=== PATIENT | female | born 1960 | race Caucasian/White ===

== ENCOUNTER 2017-09-20 19:33 | Inpatient (IN) | payer OTHER ==
[2017-09-20] MEDS ORDERED: ALBUTEROL SO4 2.5/IPRATROPIUM 0.5 INH SOL 3 ML VIAL.NEB. NEB ONE (19:43)
--- NOTE | 2017-09-20 19:45 | PDOC ---
Rapid Medical Evaluation Time Seen by Provider: 09/20/17 19:41 Medical Evaluation: Allergies Allergy/AdvReac Type Severity Reaction Status Date / Time acetaminophen [From Percocet] Allergy Severe Difficulty Verified 08/07/12 17:35 Breathing oxycodone HCl [From Percocet] Allergy Severe Difficulty Verified 08/07/12 17:35 Breathing aspirin Allergy Verified 08/07/12 17:35 ibuprofen Allergy Verified 08/07/12 17:35 Penicillins Allergy Verified 08/07/12 17:35 Sulfa (Sulfonamide Allergy Verified 08/07/12 17:35 Antibiotics) [Sulfa(Sulfonamide Antibiotics)] 09/20/17 19:42 I have performed a brief in person evaluation of this patient. 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 on day 5 of levaquin and finishing the medrol dose pack. Pt admits to smoking marijuana . Pertinent PE findings: coughing , wheezing expiratory I have ordered the following: duoneb, CXR The patient will proceed to the ER for further evaluation. 09/20/17 19:45
[2017-09-20 20:13] LABS: HEMATOCRIT 40.5 % (32.4-45.2); HEMOGLOBIN 13.5 GM/dL (10.7-15.3); MCH 32.1 pg (25.7-33.7); MCHC 33.4 g/dl (32.0-36.0); MEAN CELL VOLUME 96.2 fl (80-96); MEAN PLT VOLUME 8.6 fl (7.5-11.1); PLATELET COUNT 262 K/MM3 (134-434); RBC 4.22 M/mm3 (3.60-5.2); RDW 14.3 % (11.6-15.6); WHITE BLOOD COUNT 16.4 K/mm3 (4.0-10.0)
[2017-09-20 20:43] LABS: ANION GAP 8 (8-16); BILIRUBIN,TOTAL 0.3 mg/dL (0.2-1.0); BLOOD UREA NITROGEN 18 mg/dL (7-18); CALCIUM 9.3 mg/dL (8.5-10.1); CHLORIDE 101 mmol/L (98-107); CO2 29 mmol/L (21-32); GLUCOSE,RANDOM 135 mg/dL (74-106); POTASSIUM 4.4 mmol/L (3.5-5.1); SGOT/AST 19 U/L (15-37); SGPT/ALT 26 U/L (12-78); SODIUM 138 mmol/L (136-145)
[2017-09-20 20:47] LABS: ALK PHOS 105 U/L (45-117); N-TERMINAL BNP 84.61 pg/ml (5-125); TOT PROT 8.1 g/dl (6.4-8.2)
[2017-09-20 23:28] LABS: PLATELET ESTIMATE ADEQUATE
--- NOTE | 2017-09-21 00:55 | PDOC ---
History of Present Illness - General History Source: Patient Exam Limitations: No Limitations - History of Present Illness Initial Comments: 09/21/17 00:59 The patient is a 57 year old female with a significant PMH of asthma, COPD, diabetes, bipolar disorder, and multiple episodes of pneumonia who presents to the emergency department with persistent cough and shortness of breath since which has worsened over the past week. She reports receiving antibiotics , breathing treatments, and steroids from both her PCP and at [facility] over the past month to minimal relief. She patient reports being on day 5 of her Levaquin course and finishing her recently prescribed Medrol dose pack. The patient denies chest pain, headache and dizziness. Denies fever, chills, nausea, vomit, diarrhea and constipation. Denies dysuria, frequency, urgency and hematuria. Allergies: Acetaminophen, Oxycodone HCl, Aspirin, Ibuprofen, Penicillins, Sulfonamides. Past surgical history: None reported. Social history: Marijuana use. Former cigarette smoker. No reported alcohol use. PCP: Dr. Abundio Stuart <John Lewis - Last Filed: 09/21/17 01:01> - General History Source: Patient <MaoGarcia corrigan - Last Filed: 09/25/17 19:24> - General Chief Complaint: Shortness of Breath Stated Complaint: RESPIRATORY Time Seen by Provider: 09/20/17 19:41 Past History <John Lewis - Last Filed: 09/21/17 01:01> - Past Medical History Asthma: Yes COPD: No CHF: No DVT: No Diabetes: Yes (even off steroids) Thyroid Disease: Yes - Suicide/Smoking/Psychosocial Hx Smoking Status: Yes Smoking History: Former smoker Have you smoked in the past 12 months: Yes Number of Cigarettes Smoked Daily: 0 Information on smoking cessation initiated: No 'Breaking Loose' booklet given: 06/18/12 Hx Alcohol Use: No Drug/Substance Use Hx: Yes Substance Use Type: Marijuana Hx Substance Use Treatment: No <Garcia Lambert - Last Filed: 09/25/17 19:24> - Past Medical History Allergies/Adverse Reactions: Allergies Allergy/AdvReac Type Severity Reaction Status Date / Time acetaminophen [From Percocet] Allergy Severe Difficulty Verified 09/20/17 19:48 Breathing oxycodone HCl [From Percocet] Allergy Severe Difficulty Verified 09/20/17 19:48 Breathing aspirin Allergy Verified 09/20/17 19:48 ibuprofen Allergy Verified 09/20/17 19:48 Penicillins Allergy Verified 09/20/17 19:48 Sulfa (Sulfonamide Allergy Verified 09/20/17 19:48 Antibiotics) [Sulfa(Sulfonamide Antibiotics)] Home Medications: Ambulatory Orders Levothyroxine [Synthroid -] 125 mcg PO DAILY #0 tablet 07/12/12 Alprazolam 0.5 mg PO BID PRN 09/21/17 Atorvastatin Calcium [Lipitor] 10 mg PO HS 09/21/17 Lamotrigine [Lamictal -] 200 mg PO BID 09/21/17 Quetiapine Fumarate [Seroquel -] 450 mg PO HS 09/21/17 Valsartan 80 mg PO DAILY 09/21/17 Diphenhydramine 50 mg PO HS 09/22/17 Metformin HCl 1,000 mg PO BID 09/22/17 Review of Systems - Review of Systems Able to Perform ROS?: Yes Comments:: 09/21/17 00:59 CONSTITUTIONAL: Absent: fever, chills, diaphoresis, generalized weakness, malaise, loss of appetite HEENT: Absent: rhinorrhea, nasal congestion, throat pain, throat swelling, difficulty swallowing, mouth swelling, ear pain, eye pain, visual Changes CARDIOVASCULAR: Absent: chest pain, syncope, palpitations, irregular heart rate, lightheadedness , peripheral edema RESPIRATORY: (+) Cough. (+) Shortness of breath. Absent: dyspnea with exertion, orthopnea, wheezing, stridor, hemoptysis GASTROINTESTINAL: Absent: abdominal pain, abdominal distension, nausea, vomiting, diarrhea, constipation, melena, hematochezia GENITOURINARY: Absent: dysuria, frequency, urgency, hesitancy, hematuria, flank pain, genital pain MUSCULOSKELETAL: Absent: myalgia, arthralgia, joint swelling SKIN: Absent: rash, itching, pallor HEMATOLOGIC/IMMUNOLOGIC: Absent: easy bleeding, easy bruising, lymphadenopathy, frequent infections ENDOCRINE: Absent: unexplained weight gain, unexplained weight loss, heat intolerance, cold intolerance NEUROLOGIC: Absent: headache, focal weakness or paresthesias, dizziness, unsteady gait, seizure, mental status changes, bladder or bowel incontinence PSYCHIATRIC: Absent: anxiety, depression, suicidal or homicidal ideation, hallucinations. <John Lewis - Last Filed: 09/21/17 01:01> *Physical Exam - Vital Signs Last Vital Signs Temp Pulse Resp BP Pulse Ox 98.3 F 102 H 28 H 139/89 98 09/20/17 19:43 09/20/17 19:43 09/20/17 19:43 09/20/17 19:43 09/20/17 19:43 - Physical Exam Comments: 09/21/17 00:59 GENERAL: Well developed, well nourished. Awake and alert. No acute distress. HEENT: Normocephalic, atraumatic. PERRLA, EOMI. No conjunctival pallor. Sclera are non- icteric. Moist mucous membranes. Oropharynx is clear. NECK: Supple. Full ROM. No JVD. Carotid pulses 2+ and symmetric, without bruits. No thyromegaly. No lymphadenopathy. CARDIOVASCULAR: Regular rate and rhythm. No murmurs, rubs, or gallops. Distal pulses are 2+ and symmetric. PULMONARY: (+) Coarse bilateral wheezing. No evidence of respiratory distress. No rales or rhonchi. ABDOMINAL: Soft. Non-tender. Non-distended. No rebound or guarding. No organomegaly. Normoactive bowel sounds. MUSCULOSKELETAL Normal range of motion at all joints. No bony deformities or tenderness. No CVA tenderness. EXTREMITIES: No cyanosis. No clubbing. No edema. No calf tenderness. SKIN: Warm and dry. Normal capillary refill. No rashes. No jaundice. NEUROLOGICAL: Alert, awake, appropriate. Cranial nerves 2-12 intact. No deficits to light touch and temperature in face, upper extremities and lower extremities. No motor deficits in the in face, upper extremities and lower extremities. Normoreflexic in the upper and lower extremities. Normal speech. Toes are downgoing bilaterally. Gait is normal without ataxia. PSYCHIATRIC: Cooperative. Good eye contact. Appropriate mood and affect. <John Lewis - Last Filed: 09/21/17 01:01> - Vital Signs Last Vital Signs Temp Pulse Resp BP Pulse Ox 98.3 F 102 H 28 H 139/89 98 09/20/17 19:43 09/20/17 19:43 09/20/17 19:43 09/20/17 19:43 09/20/17 19:43 <Garcia Lambert - Last Filed: 09/25/17 19:24> ED Treatment Course - LABORATORY CBC & Chemistry Diagram: 09/20/17 20:00 09/20/17 20:00 - ADDITIONAL ORDERS Additional order review: Laboratory Results 09/20/17 09/20/17 20:00 20:00 Sodium 138 Potassium 4.4 Chloride 101 Carbon Dioxide 29 Anion Gap 8 BUN 18 Creatinine 1.0 Creat Clearance w eGFR 56.75 Random Glucose 135 H Calcium 9.3 Total Bilirubin 0.3 AST 19 ALT 26 Alkaline Phosphatase 105 Creatine Kinase 741 H Creatine Kinase Index 0.2 CK-MB (CK-2) 2.157 Troponin I < 0.02 B-Natriuretic Peptide 84.61 Total Protein 8.1 Albumin 4.0 09/20/17 20:00 RBC 4.22 MCV 96.2 H MCHC 33.4 RDW 14.3 MPV 8.6 Neutrophils % No Result Required. Lymphocytes % No Result Required. - Medications Given in the ED: ED Medications Discontinued Medications Generic Name Dose Route Start Last Admin Trade Name Freq PRN Reason Stop Dose Admin Albuterol/Ipratropium 1 amp 09/20/17 19:43 09/20/17 19:50 Duoneb - NEB 09/20/17 19:44 1 amp ONCE ONE Administration <John Lewis - Last Filed: 09/21/17 01:01> - LABORATORY CBC & Chemistry Diagram: 09/25/17 06:30 09/25/17 06:30 - ADDITIONAL ORDERS Additional order review: Laboratory Results 09/20/17 09/20/17 20:00 20:00 Sodium 138 Potassium 4.4 Chloride 101 Carbon Dioxide 29 Anion Gap 8 BUN 18 Creatinine 1.0 Creat Clearance w eGFR 56.75 Random Glucose 135 H Calcium 9.3 Total Bilirubin 0.3 AST 19 ALT 26 Alkaline Phosphatase 105 Creatine Kinase 741 H Creatine Kinase Index 0.2 CK-MB (CK-2) 2.157 Troponin I < 0.02 B-Natriuretic Peptide 84.61 Total Protein 8.1 Albumin 4.0 09/20/17 20:00 RBC 4.22 MCV 96.2 H MCHC 33.4 RDW 14.3 MPV 8.6 Neutrophils % No Result Required. Lymphocytes % No Result Required. - Medications Given in the ED: ED Medications Discontinued Medications Generic Name Dose Route Start Last Admin Trade Name Freq PRN Reason Stop Dose Admin Albuterol/Ipratropium 1 amp 09/20/17 19:43 09/20/17 19:50 Duoneb - NEB 09/20/17 19:44 1 amp ONCE ONE Administration <Garcia Lambert - Last Filed: 09/25/17 19:24> Medical Decision Making - Medical Decision Making 09/21/17 02:09 Pt still having coarse breath sounds. symptoms occurring for several weeks. Taken several antibiotics without resolution. Pt to be admitted to [facility]. 09/25/17 19:23 Dr. Lambert: The scribe's documentation has been prepared under my direction and personally reviewed by me in its entirery. I confirm that the note above accurately reflects all work, treatment, procedures, and medical decision making performed by me. <aGrcia Lambert - Last Filed: 09/25/17 19:24> *DC/Admit/Observation/Transfer - Attestations Scribe Attestion: 09/21/17 01:00 Documentation prepared by John Lewis, acting as biomedical repair technician for Garcia Lambert DO. <John Lewis - Last Filed: 09/21/17 01:01> - Discharge Dispostion Admit: Yes <Garcia Lambert - Last Filed: 09/25/17 19:24> Diagnosis at time of Disposition: COPD exacerbation - Discharge Dispostion Condition at time of disposition: Stable
[2017-09-21] MEDS ORDERED: methylPREDNISolone NA SUCC 125 MG/2 ML VIAL IVPB ONE (01:01)
[2017-09-21] MEDS ORDERED: ALBUTEROL SO4 2.5/IPRATROPIUM 0.5 INH SOL 3 ML VIAL.NEB. NEB STA (01:01)
[2017-09-21] MEDS ORDERED: MAGNESIUM SULF 50% (8.12 MEQ/2 ML-1 GM VIAL) IVPB ONE (01:01)
[2017-09-21] MEDS ORDERED: MAGNESIUM SULF 50% (8.12 MEQ/2 ML-1 GM VIAL) ONE (01:26)
[2017-09-21] MEDS ORDERED: IPRATROPIUM BR 0.02% 0.5 MG/2.5 ML VIAL.NEB. NEB PRN (03:38)
[2017-09-21] MEDS ORDERED: DOCUSATE SODIUM 100 MG CAPSULE (FP) PO PRN (03:38)
[2017-09-21] MEDS ORDERED: ALBUTEROL SO4 0.083% IH SOL 2.5 MG/3 ML VIAL.NEB. NEB PRN (03:38)
[2017-09-21] MEDS ORDERED: LEVALBUTEROL NEB PRN (03:44)
[2017-09-21] MEDS ORDERED: ACETYLCYSTEINE 20% 200MG/ML 30 ML VIAL *FOR ORAL / INH USE ONLY NEB SCH (03:45)
[2017-09-21] MEDS ORDERED: predniSONE 20 MG TABLET (UD) PO SCH (03:45)
--- NOTE | 2017-09-21 03:50 | PN ---
Teaching Attending Note Name of Resident: French Canchola ATTENDING PHYSICIAN STATEMENT I saw and evaluated the patient. I reviewed the resident's note and discussed the case with the resident. I agree with the resident's findings and plan as documented. SUBJECTIVE: 57 yo female with history of Asthma c/o progressively worsening SOB and wheezing x 1 month . Was seen by PMD and in urgent care, no improvement after oral medrol pack and antibiotics No fever , no sputum OBJECTIVE: Vital Signs Temperature 98.3 F 09/20/17 19:43 Pulse Rate 102 H 09/20/17 19:43 Respiratory Rate 28 H 09/20/17 19:43 Blood Pressure 139/89 09/20/17 19:43 O2 Sat by Pulse Oximetry (%) 98 09/20/17 19:43 RS b/l wheezing EXT no edema ABD Soft NT CBC, BMP 09/20/17 20:00 09/20/17 20:00 CXR - [facility] ASSESSMENT AND PLAN: 1. Asthma exacerbation - steroids IV Q 6 and taper - no need for AB - O2 - Nebs 2. HTN -controlled 3. Bipolar disorder - c/w home meds
[2017-09-21] MEDS ORDERED: predniSONE 20 MG TABLET (UD) ONE (03:56)
--- NOTE | 2017-09-21 04:01 | HP ---
CHIEF COMPLAINT: cough PCP: Dr. Abundio Stuart HISTORY OF PRESENT ILLNESS: Pt is a 57 y/o F with PMH COPD, Asthma, mult PNA who presents to ED with cough and wheezing since 08/27/17. Pt states she has been having 5 bouts coughing/day occasionally productive of green sputum, more frequent at night and when lying flat. Pt states she had an asthma attack 2 weeks ago and she went to urgent care last sunday and was given levaquin and medrol, which she has just finished. No other complaints. Denies fever, chills, nausea, vomiting, diarrhea. ER course was notable for: (1) WBC 16.4, Trop neg, CK 741, glc 135 (2) CXR unremarkable pending official read (3) DuoNebs, Mg, methylprednisolone Recent Travel: denies PAST MEDICAL HISTORY: COPD, Asthma, multiple PNA, DM, Bipolar, Grave's s/p thyroidectomy PAST SURGICAL HISTORY: Social History: Smokin yrs 1/3 ppd Alcohol: socially Drugs: marijuana daily Family History: denies Allergies acetaminophen [From Percocet] Allergy (Severe, Verified 09/20/17 19:48) Difficulty Breathing HIVES ITCHY PT NOT ALLERGIC TO TYLENOL oxycodone HCl [From Percocet] Allergy (Severe, Verified 09/20/17 19:48) Difficulty Breathing HIVES ITCHY aspirin Allergy (Verified 09/20/17 19:48) ibuprofen Allergy (Verified 09/20/17 19:48) Penicillins Allergy (Verified 09/20/17 19:48) Sulfa (Sulfonamide Antibiotics) [Sulfa(Sulfonamide Antibiotics)] Allergy ( Verified 09/20/17 19:48) HOME MEDICATIONS: Home Medications Medication Instructions Recorded Albuterol Sulfate 0.5% [Ventolin 1 neb NEB Q4H PRN #0 vial 07/12/12 0.5% Nebulizing Soln. -] Biotin 1 mg PO DAILY #0 tablet 07/12/12 Cyanocobalamin (Vitamin B-12) 3,000 mcg PO DAILY #0 tablet.er 07/12/12 [Vitamin B-12] Insulin (Levemir) [Levemir Flexpen 20 units SQ ACBK #0 pen 07/12/12 -] Lamotrigine [LaMICtal -] 400 mg PO DAILY #0 tablet 11/09/12 Levalbuterol HCl [Xopenex] 1.25 unit NEB Q4H PRN 07/12/12 Levothyroxine [Synthroid -] 125 mcg PO DAILY #0 tablet 07/12/12 Magnesium 400 mg PO DAILY #0 tablet 07/12/12 Metformin HCl [Glucophage -] 500 mg PO BID #0 tablet 07/12/12 Tiotropium [place] [Spiriva] 1 inh IH DAILY #0 inh 07/12/12 Losartan Potassium [Cozaar -] 25 mg PO DAILY #0 tablet 08/09/12 Prednisone [Deltasone -] 20 mg GT DAILY #0 tablet 08/09/12 Quetiapine Fumarate [Seroquel -] 600 mg PO HS #0 tablet 08/09/12 Salmeterol/Fluticasone [Advair 1 inh IH BID #0 inh 08/09/12 500Mcg/50Mcg -] REVIEW OF SYSTEMS CONSTITUTIONAL: Absent: fever, chills, diaphoresis, generalized weakness, malaise, loss of appetite, weight change HEENT: Absent: rhinorrhea, nasal congestion, throat pain, throat swelling, difficulty swallowing, mouth swelling, ear pain, eye pain, visual changes CARDIOVASCULAR: Absent: chest pain, syncope, palpitations, irregular heart rate, lightheadedness , peripheral edema RESPIRATORY: cough, wheezing Absent: , shortness of breath, dyspnea with exertion, orthopnea, stridor, hemoptysis GASTROINTESTINAL: Absent: abdominal pain, abdominal distension, nausea, vomiting, diarrhea, constipation, melena, hematochezia GENITOURINARY: Absent: dysuria, frequency, urgency, hesitancy, hematuria, flank pain, genital pain MUSCULOSKELETAL: Absent: myalgia, arthralgia, joint swelling, back pain, neck pain SKIN: Absent: rash, itching, pallor HEMATOLOGIC/IMMUNOLOGIC: Absent: easy bleeding, easy bruising, lymphadenopathy, frequent infections ENDOCRINE: Absent: unexplained weight gain, unexplained weight loss, heat intolerance, cold intolerance NEUROLOGIC: Absent: headache, focal weakness or paresthesias, dizziness, unsteady gait, seizure, mental status changes, bladder or bowel incontinence PSYCHIATRIC: Absent: anxiety, depression, suicidal or homicidal ideation, hallucinations. PHYSICAL EXAMINATION Vital Signs - 24 hr 09/20/17 19:43 Temperature 98.3 F Pulse Rate 102 H Respiratory 28 H Rate Blood Pressure 139/89 O2 Sat by Pulse 98 Oximetry (%) GENERAL: Awake, alert, and fully oriented, in no acute distress. HEAD: Normal with no signs of trauma. EYES: Pupils equal, round and reactive to light, extraocular movements intact, sclera anicteric, conjunctiva clear. No lid lag. EARS, NOSE, THROAT: oropharynx clear without exudates. Moist mucous membranes. NECK: Normal range of motion, supple without lymphadenopathy, JVD, or masses. LUNGS: Diffues wheezes, and crackles. Coarse. No accessory muscle use. HEART: Regular rate and rhythm, normal S1 and S2 without murmur, rub or gallop. ABDOMEN: Soft, nontender, not distended, normoactive bowel sounds, no guarding, no rebound, no masses. No hepatomegaly or splenomegaly. MUSCULOSKELETAL: Normal range of motion at all joints. No bony deformities or tenderness. No CVA tenderness. UPPER EXTREMITIES: 2+ pulses, warm, well-perfused. No cyanosis. No clubbing. No peripheral edema. LOWER EXTREMITIES: 2+ pulses, warm, well-perfused. No calf tenderness. No peripheral edema. NEUROLOGICAL: Cranial nerves II-XII intact. Normal speech. Normal gait. PSYCHIATRIC: Cooperative. Good eye contact. Appropriate mood and affect. SKIN: Warm, dry, normal turgor, no rashes or lesions noted, normal capillary refill. Laboratory Results - last 24 hr 09/20/17 09/20/17 09/20/17 20:00 20:00 20:00 WBC 16.4 H D RBC 4.22 Hgb 13.5 Hct 40.5 MCV 96.2 H MCH 32.1 MCHC 33.4 RDW 14.3 Plt Count 262 D MPV 8.6 Neutrophils % No Result Required. Neutrophils % (Manual) 59.0 Band Neutrophils % 1.0 Lymphocytes % No Result Required. Lymphocytes % (Manual) 26.0 Monocytes % (Manual) 12 H Eosinophils % (Manual) 2.0 Platelet Estimate Adequate Sodium 138 Potassium 4.4 Chloride 101 Carbon Dioxide 29 Anion Gap 8 BUN 18 Creatinine 1.0 Creat Clearance w eGFR 56.75 Random Glucose 135 H Calcium 9.3 Total Bilirubin 0.3 AST 19 ALT 26 Alkaline Phosphatase 105 Creatine Kinase 741 H Creatine Kinase Index 0.2 CK-MB (CK-2) 2.157 Troponin I < 0.02 B-Natriuretic Peptide 84.61 Total Protein 8.1 Albumin 4.0 ASSESSMENT/PLAN: Pt is a 57 y/o F w/ PMH Asthma, COPD, mult PNA who presents to ED with several weeks of cough occasionally productive of sputum. #COPD exacerbation -Obs -O2 -Duonebs -Mucomyst -Guanfenisine -Prednisone #Asthma -on duonebs #DM -BGM ACHS -DM diet -c/w home meds #Bipolar -c/w home meds #Graves s/p thyroidectomy -c/w home meds #FEN -not on fluids -lytes wnl -DM diet #PPx -Hep SubQ #Dispo -Obs Med/Surg French Canchola MD PGY-1 IM Visit type - Emergency Visit Emergency Visit: Yes ED Registration Date: 09/22/17 Care time: The patient presented to the Emergency Department on the above date and was hospitalized for further evaluation of their emergent condition. - New Patient This patient is new to me today: Yes Date on this admission: 09/23/17 - Critical Care Critical Care patient: No
[2017-09-21] MEDS ORDERED: ACETYLCYSTEINE 20% 200MG/ML 4 ML VIAL *FOR ORAL / INH USE ONLY ONE ×2 (04:09→13:52)
[2017-09-21] MEDS: ACETYLCYSTEINE 20% 200MG/ML 4 ML VIAL *FOR ORAL / INH USE ONLY NEB SCH ×2 (04:11→13:56)
[2017-09-21] MEDS ORDERED: metFORMIN HCL 500 MG TABLET (FP) ONE (06:09)
[2017-09-21] MEDS ORDERED: LEVOTHYROXINE NA 25 MCG TABLET (FP) ONE (06:09)
[2017-09-21] MEDS ORDERED: HEPARIN NA (PORCINE) 5,000 UNITS/ML 1ML VIAL ONE (06:09)
[2017-09-21] MEDS ORDERED: INSULIN DETEMIR 100 UNITS/ML MDV SQ ONE (06:10)
[2017-09-21] MEDS: HEPARIN NA (PORCINE) 5,000 UNITS/ML 1ML VIAL SQ SCH ×3 (06:13→21:22)
[2017-09-21] MEDS ORDERED: ALBUTEROL SO4 2.5/IPRATROPIUM 0.5 INH SOL 3 ML VIAL.NEB. NEB ONE ×2 (06:43→12:18)
[2017-09-21] MEDS: metFORMIN HCL 500 MG TABLET (FP) PO SCH ×2 (07:07→17:24)
[2017-09-21] MEDS: INSULIN DETEMIR 100 UNITS/ML MDV SQ SCH (07:07)
[2017-09-21] MEDS: LEVOTHYROXINE NA 125 MCG TABLET (FP) PO SCH (07:07)
[2017-09-21] MEDS ORDERED: methylPREDNISolone NA SUCC 125 MG/2 ML VIAL IVPB SCH ×2 (07:30→15:00)
[2017-09-21] MEDS ORDERED: methylPREDNISolone NA SUCC 40 MG/1 ML VIAL ONE (07:36)
[2017-09-21 08:51] LABS: HEMATOCRIT 38.5 % (32.4-45.2); HEMOGLOBIN 12.3 GM/dL (10.7-15.3); MCH 31.2 pg (25.7-33.7); MCHC 31.9 g/dl (32.0-36.0); MEAN CELL VOLUME 97.9 fl (80-96); MEAN PLT VOLUME 8.7 fl (7.5-11.1); PLATELET COUNT 203 K/MM3 (134-434); RBC 3.94 M/mm3 (3.60-5.2); RDW 15.1 % (11.6-15.6)
[2017-09-21 09:08] LABS: ALBUMIN 3.5 g/dl (3.4-5.0); ALK PHOS 95 U/L (45-117); ANION GAP 13 (8-16); BILIRUBIN,TOTAL 0.3 mg/dL (0.2-1.0); BLOOD UREA NITROGEN 25 mg/dL (7-18); CALCIUM 8.4 mg/dL (8.5-10.1); CHLORIDE 97 mmol/L (98-107); CO2 24 mmol/L (21-32); CREATININE 1.6 mg/dL (0.55-1.02); SGPT/ALT 26 U/L (12-78); SODIUM 134 mmol/L (136-145); TOT PROT 7.3 g/dl (6.4-8.2)
[2017-09-21 09:10] LABS: POTASSIUM 4.6 mmol/L (3.5-5.1); SGOT/AST 23 U/L (15-37)
[2017-09-21 09:11] LABS: GLUCOSE,RANDOM 481 mg/dL (74-106)
[2017-09-21] MEDS ORDERED: TIOTROPIUM BROMIDE 18 MCG/INH (DEVICE W/ 5 CAPSULES) IH SCH (10:00)
[2017-09-21] MEDS ORDERED: PATIENT'S OWN MEDICATION (NON-FORMULARY) (Biotin [Biotin] 1 MG) PO SCH (10:00)
[2017-09-21] MEDS: PANTOPRAZOLE 20 MG TABLET (FP) PO SCH (10:19)
[2017-09-21] MEDS: lamoTRIgine 100 MG TABLET (FP) PO SCH (10:19)
[2017-09-21] MEDS: LOSARTAN POTASSIUM 25 MG TABLET PO SCH (10:19)
[2017-09-21] MEDS: MAGNESIUM OXIDE 400 MG TABLET (FP) PO SCH (10:19)
[2017-09-21] MEDS: CYANOCOBALAMIN 1,000 MCG TABLET (FP) PO SCH (10:20)
[2017-09-21] MEDS: BUDESONIDE/FORMETEROL FUMARATE 160/4.5 mcg INHALER IH SCH ×2 (10:20→22:07)
[2017-09-21] MEDS: ALBUTEROL SO4 0.083% IH SOL 2.5 MG/3 ML VIAL.NEB. NEB PRN ×2 (12:50→13:56)
--- NOTE | 2017-09-21 13:36 | CONSULT ---
Consultation: REQUESTING PROVIDER: estrella pelletier CONSULT REQUEST: We have been asked to medically evaluate this patient for shortness of breath. HISTORY OF PRESENT ILLNESS: This is a 57 year old female with a past medical history of asthma, copd, hx of pneumonia, hypothyroid, bipolar who presented to the emergency room with progressive shortness of breath, cough. She was recently seen last week at urgent care, and was prescribed 10 day course of Levaquin and medrol dose pack without relief. Patient denies fever, chills, n,v, recent illness, sick contacts. She has not had an asthma attck in many year nor has she used her prescribed inhalers. In the ER she was given high dose steroids, bronchodilators. CXR reviewed, negative for acute pulmonary process. Patient smokes marijuana daily; denies tobacco use REVIEW OF SYSTEMS: CONSTITUTIONAL: Absent: fever, chills, diaphoresis, generalized weakness, malaise, loss of appetite, weight change HEENT: Absent: rhinorrhea, nasal congestion, throat pain, throat swelling, difficulty swallowing, mouth swelling, ear pain, eye pain, visual changes CARDIOVASCULAR: Absent: chest pain, syncope, palpitations, irregular heart rate, lightheadedness , peripheral edema RESPIRATORY: Positive: shortness of breath, dyspnea with exertion,wheezing Absent: orthopnea,stridor, hemoptysis GASTROINTESTINAL: Absent: abdominal pain, abdominal distension, nausea, vomiting, diarrhea, constipation, melena, hematochezia GENITOURINARY: Absent: dysuria, frequency, urgency, hesitancy, hematuria, flank pain, genital pain MUSCULOSKELETAL: Absent: myalgia, arthralgia, joint swelling, back pain, neck pain SKIN: Absent: rash, itching, pallor HEMATOLOGIC/IMMUNOLOGIC: Absent: easy bleeding, easy bruising, lymphadenopathy, frequent infections ENDOCRINE: Absent: unexplained weight gain, unexplained weight loss, heat intolerance, cold intolerance NEUROLOGIC: Absent: headache, focal weakness or paresthesias, dizziness, unsteady gait, seizure, mental status changes, bladder or bowel incontinence PSYCHIATRIC: Absent: anxiety, depression, suicidal or homicidal ideation, hallucinations. PHYSICAL EXAMINATION Vital Signs - 24 hr 09/20/17 09/21/17 09/21/17 19:43 06:10 08:34 Temperature 98.3 F 97.7 F Pulse Rate 102 H Pulse Rate [ 91 H Left Radial] Respiratory 28 H 18 Rate Blood Pressure 139/89 Blood Pressure 131/71 [Left Arm] O2 Sat by Pulse 98 96 98 Oximetry (%) 09/21/17 09/21/17 10:22 12:46 Temperature Pulse Rate Pulse Rate [ 88 100 H Left Radial] Respiratory 24 24 Rate Blood Pressure Blood Pressure 126/70 131/79 [Left Arm] O2 Sat by Pulse 99 96 Oximetry (%) GENERAL: Awake, alert, and fully oriented, in no acute distress. HEAD: Normal with no signs of trauma. EYES: Pupils equal, round and reactive to light, extraocular movements intact, sclera anicteric, conjunctiva clear. No lid lag. EARS, NOSE, THROAT: Ears normal, nares patent, oropharynx clear without exudates. Moist mucous membranes. NECK: Normal range of motion, supple without lymphadenopathy, JVD, or masses. LUNGS: decreased air entry; bilateral wheezes throughout lung lopez, and no crackles. No accessory muscle use. HEART: Regular rate and rhythm, normal S1 and S2 without murmur, rub or gallop. ABDOMEN: Soft, nontender, not distended, normoactive bowel sounds, no guarding, no rebound, no masses. No hepatomegaly or splenomegaly. MUSCULOSKELETAL: Normal range of motion at all joints. No bony deformities or tenderness. No CVA tenderness. UPPER EXTREMITIES: 2+ pulses, warm, well-perfused. No cyanosis. No clubbing. Cap refill <2 seconds. No peripheral edema. LOWER EXTREMITIES: 2+ pulses, warm, well-perfused. No calf tenderness. No peripheral edema. NEUROLOGICAL: Cranial nerves II-XII intact. Normal speech. Normal gait. PSYCHIATRIC: Cooperative. Good eye contact. Appropriate mood and affect. SKIN: Warm, dry, normal turgor, no rashes or lesions noted. Laboratory Results - last 24 hr 09/20/17 09/20/17 09/20/17 20:00 20:00 20:00 WBC 16.4 H D RBC 4.22 Hgb 13.5 Hct 40.5 MCV 96.2 H MCH 32.1 MCHC 33.4 RDW 14.3 Plt Count 262 D MPV 8.6 Neutrophils % No Result Required. Neutrophils % (Manual) 59.0 Band Neutrophils % 1.0 Lymphocytes % No Result Required. Lymphocytes % (Manual) 26.0 Monocytes % (Manual) 12 H Eosinophils % (Manual) 2.0 Platelet Estimate Adequate Sodium 138 Potassium 4.4 Chloride 101 Carbon Dioxide 29 Anion Gap 8 BUN 18 Creatinine 1.0 Creat Clearance w eGFR 56.75 POC Glucometer Random Glucose 135 H Calcium 9.3 Total Bilirubin 0.3 AST 19 ALT 26 Alkaline Phosphatase 105 Creatine Kinase 741 H Creatine Kinase Index 0.2 CK-MB (CK-2) 2.157 Troponin I < 0.02 B-Natriuretic Peptide 84.61 Total Protein 8.1 Albumin 4.0 09/21/17 09/21/17 09/21/17 06:39 08:19 08:20 WBC 13.0 H RBC 3.94 Hgb 12.3 Hct 38.5 MCV 97.9 H MCH 31.2 MCHC 31.9 L RDW 15.1 Plt Count 203 D MPV 8.7 Neutrophils % Neutrophils % (Manual) Band Neutrophils % Lymphocytes % Lymphocytes % (Manual) Monocytes % (Manual) Eosinophils % (Manual) Platelet Estimate Sodium 134 L Potassium 4.6 Chloride 97 L Carbon Dioxide 24 Anion Gap 13 BUN 25 H Creatinine 1.6 H Creat Clearance w eGFR 32.99 POC Glucometer [phone] Random Glucose 481 H* Calcium 8.4 L Total Bilirubin 0.3 AST 23 ALT 26 Alkaline Phosphatase 95 Creatine Kinase Creatine Kinase Index CK-MB (CK-2) Troponin I B-Natriuretic Peptide Total Protein 7.3 Albumin 3.5 Active Medications Generic Name Dose Route Start Last Admin Trade Name Freq PRN Reason Stop Dose Admin Acetylcysteine 600 mg 09/21/17 04:00 09/21/17 04:11 Mucomyst 20 Oral / Inh Use Only* NEB 600 mg RTID MICHELL Administration Albuterol Sulfate 1 amp 09/21/17 03:39 09/21/17 12:50 Ventolin 0.083% Nebulizer Soln - NEB 1 amp Q4H PRN Administration SHORTNESS OF BREATH Budesonide/Formoterol Fumarate 2 puff 09/21/17 10:00 09/21/17 10:20 Symbicort 160/4.5mcg - IH Not Given BID MICHELL Cyanocobalamin 3,000 mcg 09/21/17 10:00 09/21/17 10:20 Vitamin B12 - PO 3,000 mcg DAILY MICHELL Administration Docusate Sodium 100 mg 09/21/17 03:38 Colace - PO BID PRN CONSTIPATION Guaifenesin 10 ml 09/21/17 03:43 Robitussin - PO Q4H PRN COUGH Heparin Sodium (Porcine) 5,000 unit 09/21/17 06:00 09/21/17 06:13 Heparin - SQ 5,000 unit TID MICHELL Administration Insulin Detemir 20 units 09/21/17 07:00 09/21/17 07:07 Levemir Vial SQ 20 unit ACBK MICHELL Administration Ipratropium [place] 1 amp 09/21/17 03:38 09/21/17 12:50 Atrovent 0.02% Nebulizer - NEB 1 amp Q6H PRN Administration WHEEZING Lamotrigine 400 mg 09/21/17 10:00 09/21/17 10:19 Lamictal - PO 400 mg DAILY MICHELL Administration Levothyroxine Sodium 125 mcg 09/21/17 07:00 09/21/17 07:07 Synthroid - PO 125 mcg DAILY@0700 MICHELL Administration Losartan Potassium 25 mg 09/21/17 10:00 09/21/17 10:19 Cozaar - PO 25 mg DAILY MICHELL Administration Magnesium Oxide 400 mg 09/21/17 10:00 09/21/17 10:19 Mag-Ox - PO 400 mg DAILY MICHELL Administration Metformin HCl 500 mg 09/21/17 07:00 09/21/17 07:07 Glucophage - PO 500 mg BIDAC MICHELL Administration Methylprednisolone Sodium Succinate 60 mg 09/21/17 07:30 09/21/17 07:44 Solu-Medrol - IVPB Not Given Q8H MICHELL Pantoprazole Sodium 20 mg 09/21/17 10:00 09/21/17 10:19 Protonix - PO 20 mg DAILY MICHELL Administration Quetiapine Fumarate 600 mg 09/21/17 22:00 Seroquel - PO HS MICHELL Tiotropium [place] 1 puff 09/21/17 10:00 09/21/17 10:19 Spiriva - IH Not Given DAILY MICHELL ASSESSMENT/PLAN: 57 year old female with a past medical history of COPD, asthma, DM, hypothyroid , bipolar who presented with dyspnea and wheezing. Impression: Acute bronchitis with brochospasm; no evidence to suggest pneumonia Acute renal insufficiently etiology ? Hyperglycemia; Plan : nasal swab influenza IV steroids bronchodilators daily peak flow IV antibiotics; continue Levaquin to complete course d/c mucomist due to patient history of perioral edema/alleric rxn Dispo: We will continue to follow the patient. Thank you for this consultative opportunity. Problem List - Problems (1) Bronchitis Code(s): J40 - BRONCHITIS, NOT SPECIFIED ACUTE OR CHRONIC (2) Acute kidney injury Code(s): N17.9 - ACUTE KIDNEY FAILURE, UNSPECIFIED (3) Hyperglycemia Code(s): R73.9 - HYPERGLYCEMIA, UNSPECIFIED Visit type - Emergency Visit Emergency Visit: Yes ED Registration Date: 09/21/17 Care time: The patient presented to the Emergency Department on the above date and was hospitalized for further evaluation of their emergent condition. - New Patient This patient is new to me today: Yes Date on this admission: 09/21/17 - Critical Care Critical Care patient: No
[2017-09-21] MEDS ORDERED: ALBUTEROL SO4 0.083% IH SOL 2.5 MG/3 ML VIAL.NEB. NEB ONE (13:52)
--- NOTE | 2017-09-21 15:14 | EKG ---
Test Reason : Blood Pressure : / mmHG Vent. Rate : 094 BPM Atrial Rate : 094 BPM P-R Int : 168 ms QRS Dur : 108 ms QT Int : 422 ms P-R-T Axes : 058 051 037 degrees QTc Int : 527 ms NORMAL SINUS RHYTHM POSSIBLE LEFT ATRIAL ENLARGEMENT LOW VOLTAGE QRS PROLONGED QT ABNORMAL ECG WHEN COMPARED WITH ECG OF 09-AUG-2012 08:47, NO SIGNIFICANT CHANGE WAS FOUND Confirmed by MD ELIZABETH, RADHA ([id number]) on 09/21/2017 3:13:50 PM Referred By: Confirmed By:RADHA JOHNSON MD
[2017-09-21] MEDS: LEVOFLOXACIN 250 MG IVPB 250 MG/50 ML MG IVPB SCH (15:46)
[2017-09-21] MEDS: ALBUTEROL SO4 2.5/IPRATROPIUM 0.5 INH SOL 3 ML VIAL.NEB. NEB SCH ×2 (16:11→20:45)
[2017-09-21] MEDS ORDERED: INSULIN (NOVOLOG) ASPART 100 UNITS/ML 10ML VIAL SQ ONE (18:33)
[2017-09-21] MEDS ORDERED: INSULIN NPH 100 UNITS/ML *VIAL ONE (18:48)
[2017-09-21] MEDS ORDERED: INSULIN (NOVOLOG) ASPART 100 UNITS/ML 10ML VIAL ONE (21:10)
[2017-09-21 21:59] VITALS: BMI 37.8
[2017-09-21] MEDS ORDERED: INSULIN (NOVOLOG) ASPART 100 UNITS/ML 10ML VIAL SQ SCH (22:00)
[2017-09-21] MEDS ORDERED: QUEtiapine FUMARATE 200 MG TABLET PO SCH (22:00)
[2017-09-21] MEDS: methylPREDNISolone NA SUCC 40 MG/1 ML VIAL IVPB SCH (22:05)
[2017-09-21] MEDS: INSULIN SLIDING SCALE (NOVOLOG) 1 VIAL SQ SCH (22:06)
[2017-09-21] MEDS: guaiFENesin 200 MG/10 ML 10 ML UNIT-DOSE CUPS PO PRN (23:41)
[2017-09-22] MEDS: methylPREDNISolone NA SUCC 40 MG/1 ML VIAL IVPB SCH ×4 (03:20→21:15)
[2017-09-22] MEDS: HEPARIN NA (PORCINE) 5,000 UNITS/ML 1ML VIAL SQ SCH ×3 (05:30→21:14)
[2017-09-22] MEDS: INSULIN DETEMIR 100 UNITS/ML MDV SQ SCH (06:11)
[2017-09-22] MEDS: INSULIN SLIDING SCALE (NOVOLOG) 1 VIAL SQ SCH ×4 (06:11→21:16)
[2017-09-22] MEDS ORDERED: INSULIN (NOVOLOG) ASPART 100 UNITS/ML 10ML VIAL ONE ×4 (06:20→19:07)
[2017-09-22] MEDS ORDERED: PT OWN MED DRAWER 7, Y5N ONE ×3 (06:21→20:40)
[2017-09-22 07:53] LABS: HEMATOCRIT 33.8 % (32.4-45.2); HEMOGLOBIN 11.1 GM/dL (10.7-15.3); MCH 31.9 pg (25.7-33.7); MCHC 32.7 g/dl (32.0-36.0); MEAN CELL VOLUME 97.8 fl (80-96); MEAN PLT VOLUME 8.6 fl (7.5-11.1); PLATELET COUNT 180 K/MM3 (134-434); RBC 3.46 M/mm3 (3.60-5.2); RDW 14.5 % (11.6-15.6); WHITE BLOOD COUNT 17.7 K/mm3 (4.0-10.0)
[2017-09-22] MEDS: ALBUTEROL SO4 2.5/IPRATROPIUM 0.5 INH SOL 3 ML VIAL.NEB. NEB SCH ×4 (08:10→20:50)
[2017-09-22 08:27] LABS: ALBUMIN 3.3 g/dl (3.4-5.0); ANION GAP 8 (8-16); BLOOD UREA NITROGEN 30 mg/dL (7-18); CALCIUM 8.6 mg/dL (8.5-10.1); CHLORIDE 103 mmol/L (98-107); CO2 26 mmol/L (21-32); GLUCOSE,RANDOM 262 mg/dL (74-106); MAGNESIUM 2.5 mg/dL (1.8-2.4); SODIUM 137 mmol/L (136-145)
[2017-09-22 08:32] LABS: ALK PHOS 84 U/L (45-117); BILIRUBIN,TOTAL 0.3 mg/dL (0.2-1.0); CREATININE 1.1 mg/dL (0.55-1.02); PHOSPHOROUS 3.2 mg/dL (2.5-4.9); SGOT/AST 11 U/L (15-37); SGPT/ALT 23 U/L (12-78); TOT PROT 6.9 g/dl (6.4-8.2)
[2017-09-22 09:15] LABS: PLATELET ESTIMATE NORMAL
[2017-09-22] MEDS: metFORMIN HCL 500 MG TABLET (FP) PO SCH ×2 (09:33→21:15)
[2017-09-22] MEDS: LEVOFLOXACIN 250 MG IVPB 250 MG/50 ML MG IVPB SCH (09:33)
[2017-09-22] MEDS: LEVOTHYROXINE NA 125 MCG TABLET (FP) PO SCH (09:33)
[2017-09-22] MEDS: PANTOPRAZOLE 20 MG TABLET (FP) PO SCH (09:34)
[2017-09-22] MEDS: CYANOCOBALAMIN 1,000 MCG TABLET (FP) PO SCH (09:34)
[2017-09-22] MEDS: LOSARTAN POTASSIUM 25 MG TABLET PO SCH (09:35)
[2017-09-22] MEDS: MAGNESIUM OXIDE 400 MG TABLET (FP) PO SCH (09:35)
[2017-09-22] MEDS: BUDESONIDE/FORMETEROL FUMARATE 160/4.5 mcg INHALER IH SCH ×2 (09:36→21:14)
[2017-09-22] MEDS: lamoTRIgine 100 MG TABLET (FP) PO SCH (09:36)
--- NOTE | 2017-09-22 12:02 | PN ---
Progress Note (short form) - Note Progress Note: Breathing feels better today but still with congested cough and wheezing. Reports being tremulous from steroids/ BD TX. Intake & Output 09/19/17 09/20/17 09/21/17 09/22/17 23:59 23:59 23:59 23:59 Intake Total 150 150 Balance 150 150 Weight 190 lb 227 lb 8 oz Last Vital Signs Temp Pulse Resp BP Pulse Ox 97.6 F 92 H 20 134/62 98 09/22/17 07:00 09/22/17 07:00 09/22/17 07:00 09/22/17 07:00 09/21/17 19:43 Active Medications Albuterol Sulfate (Ventolin 0.083% Nebulizer Soln -) 1 amp NEB Q1H PRN PRN Reason: SHORTNESS OF BREATH Albuterol/Ipratropium (Duoneb -) 1 amp NEB RQID [facility] Last Admin: 09/22/17 08:10 Dose: 1 amp Budesonide/Formoterol Fumarate (Symbicort 160/4.5mcg -) 2 puff IH BID [facility] Last Admin: 09/22/17 09:36 Dose: Not Given Cyanocobalamin (Vitamin B12 -) 3,000 mcg PO DAILY [facility] Last Admin: 09/22/17 09:34 Dose: 3,000 mcg Diphenhydramine HCl (Benadryl Injection -) 25 mg IVPUSH Q6H [facility] Docusate Sodium (Colace -) 100 mg PO BID PRN PRN Reason: CONSTIPATION Guaifenesin (Robitussin -) 10 ml PO Q4H PRN PRN Reason: COUGH Last Admin: 09/21/17 23:41 Dose: 10 ml Heparin Sodium (Porcine) (Heparin -) 5,000 unit SQ TID [facility] Last Admin: 09/22/17 05:30 Dose: Not Given Levofloxacin (Levaquin 250 Mg Premixed Ivpb -) 250 mg in 50 mls @ 50 mls/hr IVPB DAILY [facility] Last Admin: 09/22/17 09:33 Dose: 50 mls/hr Insulin Aspart (Novolog Vial Sliding Scale -) 1 vial SQ ACHS MICHELL PRN Reason: Protocol Last Admin: 09/22/17 06:11 Dose: 6 unit Insulin Detemir (Levemir Vial) 20 units SQ ACBK [facility] Last Admin: 09/22/17 06:11 Dose: 20 unit Lamotrigine (Lamictal -) 400 mg PO DAILY [facility] Last Admin: 09/22/17 09:36 Dose: Not Given Levothyroxine Sodium (Synthroid -) 125 mcg PO DAILY@0700 [facility] Last Admin: 09/22/17 09:33 Dose: Not Given Losartan Potassium (Cozaar -) 25 mg PO DAILY [facility] Last Admin: 09/22/17 09:35 Dose: Not Given Magnesium Oxide (Mag-Ox -) 400 mg PO DAILY [facility] Last Admin: 09/22/17 09:35 Dose: 400 mg Metformin HCl (Glucophage -) 500 mg PO BIDAC [facility] Last Admin: 09/22/17 09:33 Dose: Not Given Methylprednisolone Sodium Succinate (Solu-Medrol -) 40 mg IVPB Q6H-IV [facility] Last Admin: 09/22/17 09:36 Dose: 40 mg Pantoprazole Sodium (Protonix -) 20 mg PO DAILY [facility] Last Admin: 09/22/17 09:34 Dose: 20 mg Quetiapine Fumarate (Seroquel -) 400 mg PO HS [facility] GENERAL: Awake, alert, and fully oriented, in no acute distress. HEAD: Normal with no signs of trauma. EYES: sclera anicteric, conjunctiva clear. EARS, NOSE, THROAT: Moist mucous membranes. NECK: Normal range of motion, supple without lymphadenopathy, JVD, or masses. LUNGS: decreased air entry; bilateral wheezes throughout lung lopez, and no crackles. No accessory muscle use. HEART: Regular rate and rhythm, normal S1 and S2 without murmur, rub or gallop. ABDOMEN: Soft, nontender, not distended, normoactive bowel sounds, no guarding, no rebound, no masses. No hepatomegaly or splenomegaly. MUSCULOSKELETAL: Normal range of motion at all joints. No bony deformities or tenderness. No CVA tenderness. UPPER EXTREMITIES: 2+ pulses, warm, well-perfused. No cyanosis. No clubbing. Cap refill <2 seconds. No peripheral edema. LOWER EXTREMITIES: 2+ pulses, warm, well-perfused. No calf tenderness. No peripheral edema. NEUROLOGICAL: Non-focal PSYCHIATRIC: Cooperative. Good eye contact. Appropriate mood and affect. SKIN: Warm, dry, normal turgor, no rashes or lesions noted. Laboratory Results - last 24 hr 09/21/17 09/22/17 09/22/17 21:51 05:58 06:50 WBC 17.7 H D RBC 3.46 L Hgb 11.1 Hct 33.8 MCV 97.8 H MCH 31.9 MCHC 32.7 RDW 14.5 Plt Count 180 MPV 8.6 Neutrophils % No Result Required. Neutrophils % (Manual) 86.6 H D Band Neutrophils % 2.1 Lymphocytes % No Result Required. Lymphocytes % (Manual) 7.2 L D Monocytes % (Manual) 4 Eosinophils % (Manual) 0.0 D Basophils % (Manual) 0.0 Myelocytes % (Man) 0 Metamyelocytes 0 Platelet Estimate Normal Sodium Potassium Chloride Carbon Dioxide Anion Gap BUN Creatinine Creat Clearance w eGFR POC Glucometer 385 271 Random Glucose Calcium Phosphorus Magnesium Total Bilirubin AST ALT Alkaline Phosphatase Total Protein Albumin 09/22/17 06:50 WBC RBC Hgb Hct MCV MCH MCHC RDW Plt Count MPV Neutrophils % Neutrophils % (Manual) Band Neutrophils % Lymphocytes % Lymphocytes % (Manual) Monocytes % (Manual) Eosinophils % (Manual) Basophils % (Manual) Myelocytes % (Man) Metamyelocytes Platelet Estimate Sodium 137 Potassium 5.0 Chloride 103 Carbon Dioxide 26 Anion Gap 8 BUN 30 H Creatinine 1.1 H Creat Clearance w eGFR 50.84 POC Glucometer Random Glucose 262 H Calcium 8.6 Phosphorus 3.2 Magnesium 2.5 H Total Bilirubin 0.3 AST 11 L ALT 23 Alkaline Phosphatase 84 Total Protein 6.9 Albumin 3.3 L Problem List - Problems (1) Bronchitis Code(s): J40 - BRONCHITIS, NOT SPECIFIED ACUTE OR CHRONIC (2) Acute kidney injury Code(s): N17.9 - ACUTE KIDNEY FAILURE, UNSPECIFIED (3) Hyperglycemia Code(s): R73.9 - HYPERGLYCEMIA, UNSPECIFIED ASSESSMENT/PLAN: 57 year old female with a past medical history of COPD, asthma, DM, hypothyroid , bipolar who presented with dyspnea and wheezing. Impression: Acute bronchitis with brochospasm; no evidence to suggest pneumonia Acute renal insufficiency etiology ? Hyperglycemia Plan : IV steroids bronchodilators daily peak flow Noted Levaquin BD TX No smoking discussed Patient requesting Benadryl PRN Dr Villalpando
--- NOTE | 2017-09-22 13:12 | PN ---
Progress Note (short form) - Note Progress Note: Subjective: The patient was seen and examined at the bedside, she reports feeling better today, wheezing has improved. Current Medications Generic Name Dose Route Start Last Admin Trade Name Freq PRN Reason Stop Dose Admin Albuterol Sulfate 1 amp 09/21/17 14:56 Ventolin 0.083% Nebulizer Soln - NEB Q1H PRN SHORTNESS OF BREATH Albuterol/Ipratropium 1 amp 09/21/17 16:00 09/22/17 08:10 Duoneb - NEB 1 amp RQID MICHELL Administration Budesonide/Formoterol Fumarate 2 puff 09/21/17 10:00 09/22/17 09:36 Symbicort 160/4.5mcg - IH Not Given BID MICHELL Cyanocobalamin 3,000 mcg 09/21/17 10:00 09/22/17 09:34 Vitamin B12 - PO 3,000 mcg DAILY MICHELL Administration Diphenhydramine HCl 25 mg 09/22/17 12:00 09/22/17 12:09 Benadryl Injection - IVPUSH 25 mg Q6H MICHELL Administration Docusate Sodium 100 mg 09/21/17 03:38 Colace - PO BID PRN CONSTIPATION Guaifenesin 10 ml 09/21/17 03:43 09/21/17 23:41 Robitussin - PO 10 ml Q4H PRN Administration COUGH Heparin Sodium (Porcine) 5,000 unit 09/21/17 06:00 09/22/17 05:30 Heparin - SQ Not Given TID MICHELL Levofloxacin 250 mg in 50 mls @ 50 mls/hr 09/21/17 15:45 09/22/17 09:33 Levaquin 250 Mg Premixed Ivpb - IVPB 50 mls/hr DAILY MICHELL Administration Insulin Aspart 1 vial 09/21/17 22:00 09/22/17 12:09 Novolog Vial Sliding Scale - SQ 8 unit ACHS MICHELL Administration Protocol Insulin Detemir 20 units 09/21/17 07:00 09/22/17 06:11 Levemir Vial SQ 20 unit ACBK MICHELL Administration Lamotrigine 400 mg 09/21/17 10:00 09/22/17 09:36 Lamictal - PO Not Given DAILY REPLACED BY [facility] Levothyroxine Sodium 125 mcg 09/21/17 07:00 09/22/17 09:33 Synthroid - PO Not Given DAILY@0700 REPLACED BY [facility] Losartan Potassium 25 mg 09/21/17 10:00 09/22/17 09:35 Cozaar - PO Not Given DAILY MICHELL Magnesium Oxide 400 mg 09/21/17 10:00 09/22/17 09:35 Mag-Ox - PO 400 mg DAILY MICHELL Administration Metformin HCl 500 mg 09/21/17 07:00 09/22/17 09:33 Glucophage - PO Not Given BIDAC MICHELL Methylprednisolone Sodium Succinate 40 mg 09/21/17 15:14 09/22/17 09:36 Solu-Medrol - IVPB 40 mg Q6H-IV MICHELL Administration Pantoprazole Sodium 20 mg 09/21/17 10:00 09/22/17 09:34 Protonix - PO 20 mg DAILY MICHELL Administration Quetiapine Fumarate 400 mg 09/22/17 08:23 Seroquel - PO HS MICHELL Objective: Vital Signs Period Temp Pulse Resp BP Sys/Smith Pulse Ox Last 24 Hr 97.2 F-98.7 F 90-103 20-24 115-158/53-90 94-100 Physical Exam: General: NAD, A&Ox3 Lungs: Mild end inspiratory and end expiratory wheezing Heart: RRR, S1S2 Abd: Soft, non-tender, non-distended. Normoactive bowel sounds Neuro: CN 2-12 intact CBCD WBC 17.7 K/mm3 (4.0-10.0) H D 09/22/17 06:50 RBC 3.46 M/mm3 (3.60-5.2) L 09/22/17 06:50 Hgb 11.1 GM/dL (10.7-15.3) 09/22/17 06:50 Hct 33.8 % (32.4-45.2) 09/22/17 06:50 MCV 97.8 fl (80-96) H 09/22/17 06:50 MCHC 32.7 g/dl (32.0-36.0) 09/22/17 06:50 RDW 14.5 % (11.6-15.6) 09/22/17 06:50 Plt Count 180 K/MM3 (134-434) 09/22/17 06:50 MPV 8.6 fl (7.5-11.1) 09/22/17 06:50 CMP Sodium 137 mmol/L (136-145) 09/22/17 06:50 Potassium 5.0 mmol/L (3.5-5.1) 09/22/17 06:50 Chloride 103 mmol/L (98-107) 09/22/17 06:50 Carbon Dioxide 26 mmol/L (21-32) 09/22/17 06:50 Anion Gap 8 (8-16) 09/22/17 06:50 BUN 30 mg/dL (7-18) H 09/22/17 06:50 Creatinine 1.1 mg/dL (0.55-1.02) H 09/22/17 06:50 Creat Clearance w eGFR 50.84 (>60) 09/22/17 06:50 Random Glucose 262 mg/dL (74-106) H 09/22/17 06:50 Calcium 8.6 mg/dL (8.5-10.1) 09/22/17 06:50 Total Bilirubin 0.3 mg/dL (0.2-1.0) 09/22/17 06:50 AST 11 U/L (15-37) L 09/22/17 06:50 ALT 23 U/L (12-78) 09/22/17 06:50 Alkaline Phosphatase 84 U/L (45-117) 09/22/17 06:50 Total Protein 6.9 g/dl (6.4-8.2) 09/22/17 06:50 Albumin 3.3 g/dl (3.4-5.0) L 09/22/17 06:50 CARDIAC ENZYMES Creatine Kinase 741 IU/L (26-192) H 09/20/17 20:00 Troponin I < 0.02 ng/ml (0.00-0.05) 09/20/17 20:00 Microbiology 09/21/17 16:10 Nasopharyngeal Swab Influenza Types A,B Antigen (SHIRLEY) - Final 09/21/17 16:10 Nasopharyngeal Swab - Final Assessment: This is a 57 year old female with PMHx of COPD, Asthma, multiple PNA , DM, Bipolar, Grave's s/p thyroidectomy who presented to the ED with cough since 08/27/17. Plan: 1) Acute bronchitis with bronchospasms - Recently treated with Levaquin and medrol pack with no relief - Continue Solu-medrol 40mg IVPB q6h - Levaquin per pulmonary - Continue Duonebs - Continue Symbicort - Chest X-ray with no evidence of pneumonia - Appreciate pulmonary consult 2) DM - Continue Metformin 1000mg bid - BGM ACHS - ISS ACHS - Continue Levemir 3) Grave's disease s/p thyroidectomy - Continue Synthroid 4) Bipolar disorder - Continue Lamictal - Continue Seroquel 5) F/E/N: - Diabetic diet Monitor electrolytes 6) Prophylaxis: - OOB ambulating - Heparin 5,000u sq tid 7) Dispo: - Requires continued inpatient care CODE STATUS: FULL CODE Visit type - Emergency Visit Emergency Visit: Yes ED Registration Date: 09/21/17 Care time: The patient presented to the Emergency Department on the above date and was hospitalized for further evaluation of their emergent condition. - New Patient This patient is new to me today: Yes Date on this admission: 09/22/17 - Critical Care Critical Care patient: No
[2017-09-22] MEDS ORDERED: metFORMIN HCL 500 MG TABLET (FP) PO SCH (13:52)
[2017-09-22] MEDS: QUEtiapine FUMARATE 200 MG TABLET PO SCH (21:14)
[2017-09-23] MEDS: methylPREDNISolone NA SUCC 40 MG/1 ML VIAL IVPB SCH ×4 (02:23→21:10)
[2017-09-23] MEDS: LEVOTHYROXINE NA 125 MCG TABLET (FP) PO SCH (06:22)
[2017-09-23] MEDS: HEPARIN NA (PORCINE) 5,000 UNITS/ML 1ML VIAL SQ SCH ×3 (06:23→21:34)
[2017-09-23] MEDS: INSULIN SLIDING SCALE (NOVOLOG) 1 VIAL SQ SCH ×4 (06:29→21:34)
[2017-09-23] MEDS: INSULIN DETEMIR 100 UNITS/ML MDV SQ SCH (06:32)
[2017-09-23] MEDS: metFORMIN HCL 500 MG TABLET (FP) PO SCH ×2 (06:33→17:23)
[2017-09-23] MEDS ORDERED: INSULIN (NOVOLOG) ASPART 100 UNITS/ML 10ML VIAL ONE ×2 (06:37→11:54)
[2017-09-23 07:15] LABS: HEMATOCRIT 36.7 % (32.4-45.2); HEMOGLOBIN 11.9 GM/dL (10.7-15.3); MCH 31.6 pg (25.7-33.7); MCHC 32.5 g/dl (32.0-36.0); MEAN CELL VOLUME 97.4 fl (80-96); MEAN PLT VOLUME 8.8 fl (7.5-11.1); PLATELET COUNT 197 K/MM3 (134-434); RBC 3.77 M/mm3 (3.60-5.2); RDW 14.3 % (11.6-15.6); WHITE BLOOD COUNT 18.6 K/mm3 (4.0-10.0)
[2017-09-23] MEDS: ALBUTEROL SO4 2.5/IPRATROPIUM 0.5 INH SOL 3 ML VIAL.NEB. NEB SCH ×4 (07:30→20:50)
[2017-09-23] MEDS ORDERED: PT OWN MED DRAWER 7, Y5N ONE ×2 (09:39→21:04)
[2017-09-23] MEDS: LOSARTAN POTASSIUM 25 MG TABLET PO SCH (09:46)
[2017-09-23] MEDS: CYANOCOBALAMIN 1,000 MCG TABLET (FP) PO SCH (09:46)
[2017-09-23] MEDS: PANTOPRAZOLE 20 MG TABLET (FP) PO SCH (09:46)
[2017-09-23] MEDS: MAGNESIUM OXIDE 400 MG TABLET (FP) PO SCH (09:46)
[2017-09-23] MEDS: lamoTRIgine 100 MG TABLET (FP) PO SCH (09:47)
[2017-09-23] MEDS: BUDESONIDE/FORMETEROL FUMARATE 160/4.5 mcg INHALER IH SCH ×2 (09:47→22:51)
[2017-09-23] MEDS: LEVOFLOXACIN 250 MG IVPB 250 MG/50 ML MG IVPB SCH (09:47)
--- NOTE | 2017-09-23 11:15 | PN ---
Progress Note (short form) - Note Progress Note: Was u p all night with congested cough. Copious expectoration. Minimal amount of blood tinged sputum. Abdominal muscle discomfort due to coughing. Intake & Output 09/20/17 09/21/17 09/22/17 09/23/17 23:59 23:59 23:59 23:59 Intake Total 150 300 290 Balance 150 300 290 Weight 190 lb 227 lb 8 oz 224 lb 8 oz Last Vital Signs Temp Pulse Resp BP Pulse Ox 97.5 F L 87 18 143/66 94 L 09/23/17 09:13 09/23/17 09:13 09/23/17 09:13 09/23/17 09:13 09/22/17 22:00 Active Medications Albuterol Sulfate (Ventolin 0.083% Nebulizer Soln -) 1 amp NEB Q1H PRN PRN Reason: SHORTNESS OF BREATH Albuterol/Ipratropium (Duoneb -) 1 amp NEB RQID [facility] Last Admin: 09/23/17 07:30 Dose: 1 amp Budesonide/Formoterol Fumarate (Symbicort 160/4.5mcg -) 2 puff IH BID [facility] Last Admin: 09/23/17 09:47 Dose: Not Given Cyanocobalamin (Vitamin B12 -) 3,000 mcg PO DAILY [facility] Last Admin: 09/23/17 09:46 Dose: 3,000 mcg Diphenhydramine HCl (Benadryl Injection -) 25 mg IVPUSH Q6H [facility] Last Admin: 09/23/17 06:23 Dose: 25 mg Docusate Sodium (Colace -) 100 mg PO BID PRN PRN Reason: CONSTIPATION Guaifenesin (Robitussin -) 10 ml PO Q4H PRN PRN Reason: COUGH Last Admin: 09/21/17 23:41 Dose: 10 ml Heparin Sodium (Porcine) (Heparin -) 5,000 unit SQ TID [facility] Last Admin: 09/23/17 06:23 Dose: Not Given Levofloxacin (Levaquin 250 Mg Premixed Ivpb -) 250 mg in 50 mls @ 50 mls/hr IVPB DAILY [facility] Last Admin: 09/23/17 09:47 Dose: 50 mls/hr Insulin Aspart (Novolog Vial Sliding Scale -) 1 vial SQ ACHS [facility] PRN Reason: Protocol Last Admin: 09/23/17 06:29 Dose: 4 unit Insulin Detemir (Levemir Vial) 20 units SQ ACBK [facility] Last Admin: 09/23/17 06:32 Dose: 20 unit Lamotrigine (Lamictal -) 400 mg PO DAILY [facility] Last Admin: 09/23/17 09:47 Dose: 400 mg Levothyroxine Sodium (Synthroid -) 125 mcg PO DAILY@0700 [facility] Last Admin: 09/23/17 06:22 Dose: 125 mcg Losartan Potassium (Cozaar -) 25 mg PO DAILY [facility] Last Admin: 09/23/17 09:46 Dose: 25 mg Magnesium Oxide (Mag-Ox -) 400 mg PO DAILY [facility] Last Admin: 09/23/17 09:46 Dose: 400 mg Metformin HCl (Glucophage -) 1,000 mg PO BIDAC [facility] Last Admin: 09/23/17 06:33 Dose: 1,000 mg Methylprednisolone Sodium Succinate (Solu-Medrol -) 40 mg IVPB Q6H-IV [facility] Last Admin: 09/23/17 09:46 Dose: 40 mg Pantoprazole Sodium (Protonix -) 20 mg PO DAILY [facility] Last Admin: 09/23/17 09:46 Dose: 20 mg Quetiapine Fumarate (Seroquel -) 400 mg PO HS [facility] Last Admin: 09/22/17 21:14 Dose: Not Given GENERAL: Awake, alert, and fully oriented, in no acute distress. HEAD: Normal with no signs of trauma. EYES: sclera anicteric, conjunctiva clear. EARS, NOSE, THROAT: Moist mucous membranes. NECK: Normal range of motion, supple without lymphadenopathy, JVD, or masses. LUNGS: decreased air entry; less bilateral wheezes throughout lung lopez, and no crackles. No accessory muscle use. HEART: Regular rate and rhythm, normal S1 and S2 without murmur, rub or gallop. ABDOMEN: Soft, nontender, not distended, normoactive bowel sounds, no guarding, no rebound, no masses. No hepatomegaly or splenomegaly. MUSCULOSKELETAL: Normal range of motion at all joints. No bony deformities or tenderness. No CVA tenderness. UPPER EXTREMITIES: 2+ pulses, warm, well-perfused. No cyanosis. No clubbing. Cap refill <2 seconds. No peripheral edema. LOWER EXTREMITIES: 2+ pulses, warm, well-perfused. No calf tenderness. No peripheral edema. NEUROLOGICAL: Non-focal PSYCHIATRIC: Cooperative. Good eye contact. Appropriate mood and affect. SKIN: Warm, dry, normal turgor, no rashes or lesions noted. Laboratory Results - last 24 hr 09/21/17 09/22/17 09/22/17 21:51 05:58 06:50 WBC 17.7 H D RBC 3.46 L Hgb 11.1 Hct 33.8 MCV 97.8 H MCH 31.9 MCHC 32.7 RDW 14.5 Plt Count 180 MPV 8.6 Neutrophils % No Result Required. Neutrophils % (Manual) 86.6 H D Band Neutrophils % 2.1 Lymphocytes % No Result Required. Lymphocytes % (Manual) 7.2 L D Monocytes % (Manual) 4 Eosinophils % (Manual) 0.0 D Basophils % (Manual) 0.0 Myelocytes % (Man) 0 Metamyelocytes 0 Platelet Estimate Normal Sodium Potassium Chloride Carbon Dioxide Anion Gap BUN Creatinine Creat Clearance w eGFR POC Glucometer 385 271 Random Glucose Calcium Phosphorus Magnesium Total Bilirubin AST ALT Alkaline Phosphatase Total Protein Albumin 09/22/17 06:50 WBC RBC Hgb Hct MCV MCH MCHC RDW Plt Count MPV Neutrophils % Neutrophils % (Manual) Band Neutrophils % Lymphocytes % Lymphocytes % (Manual) Monocytes % (Manual) Eosinophils % (Manual) Basophils % (Manual) Myelocytes % (Man) Metamyelocytes Platelet Estimate Sodium 137 Potassium 5.0 Chloride 103 Carbon Dioxide 26 Anion Gap 8 BUN 30 H Creatinine 1.1 H Creat Clearance w eGFR 50.84 POC Glucometer Random Glucose 262 H Calcium 8.6 Phosphorus 3.2 Magnesium 2.5 H Total Bilirubin 0.3 AST 11 L ALT 23 Alkaline Phosphatase 84 Total Protein 6.9 Albumin 3.3 L Problem List - Problems (1) Bronchitis Code(s): J40 - BRONCHITIS, NOT SPECIFIED ACUTE OR CHRONIC (2) Acute kidney injury Code(s): N17.9 - ACUTE KIDNEY FAILURE, UNSPECIFIED (3) Hyperglycemia Code(s): R73.9 - HYPERGLYCEMIA, UNSPECIFIED ASSESSMENT/PLAN: 57 year old female with a past medical history of COPD, asthma, DM, hypothyroid , bipolar who presented with dyspnea and wheezing. Impression: Acute bronchitis with brochospasm; no evidence to suggest pneumonia Acute renal insufficiency Hyperglycemia Plan : IV steroids at the same dose bronchodilators daily peak flow Noted Levaquin BD [place] No smoking discussed Benadryl PRN Dr Villalpando
--- NOTE | 2017-09-23 18:20 | PN ---
Progress Note (short form) - Note Progress Note: Subjective: The patient was seen and examined at the bedside, she states she is feeling better today. Exam performed 30 minutes after nebulizer treatment Current Medications Generic Name Dose Route Start Last Admin Trade Name Freq PRN Reason Stop Dose Admin Albuterol Sulfate 1 amp 09/21/17 14:56 Ventolin 0.083% Nebulizer Soln - NEB Q1H PRN SHORTNESS OF BREATH Albuterol/Ipratropium 1 amp 09/21/17 16:00 09/23/17 16:00 Duoneb - NEB 1 amp RQID [facility] Administration Budesonide/Formoterol Fumarate 2 puff 09/21/17 10:00 09/23/17 09:47 Symbicort 160/4.5mcg - IH Not Given BID [facility] Cyanocobalamin 3,000 mcg 09/21/17 10:00 09/23/17 09:46 Vitamin B12 - PO 3,000 mcg DAILY [facility] Administration Diphenhydramine HCl 25 mg 09/22/17 12:00 09/23/17 17:23 Benadryl Injection - IVPUSH 25 mg Q6H [facility] Administration Docusate Sodium 100 mg 09/21/17 03:38 Colace - PO BID PRN CONSTIPATION Guaifenesin 10 ml 09/21/17 03:43 09/21/17 23:41 Robitussin - PO 10 ml Q4H PRN Administration COUGH Heparin Sodium (Porcine) 5,000 unit 09/21/17 06:00 09/23/17 15:23 Heparin - SQ 5,000 unit TID [facility] Administration Levofloxacin 250 mg in 50 mls @ 50 mls/hr 09/21/17 15:45 09/23/17 09:47 Levaquin 250 Mg Premixed Ivpb - IVPB 50 mls/hr DAILY [facility] Administration Insulin Aspart 1 vial 09/21/17 22:00 09/23/17 17:23 Novolog Vial Sliding Scale - SQ 4 unit ACHS [facility] Administration Protocol Insulin Detemir 20 units 09/21/17 07:00 09/23/17 06:32 Levemir Vial SQ 20 unit ACBK [facility] Administration Lamotrigine 400 mg 09/21/17 10:00 09/23/17 09:47 Lamictal - PO 400 mg DAILY [facility] Administration Levothyroxine Sodium 125 mcg 09/21/17 07:00 09/23/17 06:22 Synthroid - PO 125 mcg DAILY@0700 [facility] Administration Losartan Potassium 25 mg 09/21/17 10:00 09/23/17 09:46 Cozaar - PO 25 mg DAILY [facility] Administration Magnesium Oxide 400 mg 09/21/17 10:00 09/23/17 09:46 Mag-Ox - PO 400 mg DAILY [facility] Administration Metformin HCl 1,000 mg 09/22/17 18:00 09/23/17 17:23 Glucophage - PO 1,000 mg BIDAC [facility] Administration Methylprednisolone Sodium Succinate 40 mg 09/21/17 15:14 09/23/17 15:23 Solu-Medrol - IVPB 40 mg Q6H-IV [facility] Administration Pantoprazole Sodium 20 mg 09/21/17 10:00 09/23/17 09:46 Protonix - PO 20 mg DAILY [facility] Administration Quetiapine Fumarate 400 mg 09/22/17 08:23 09/22/17 21:14 Seroquel - PO Not Given HS [facility] Objective: Vital Signs Period Temp Pulse Resp BP Sys/Smith Pulse Ox Last 24 Hr 97.5 F-98.0 F 87-93 18-18 133-159/49-72 94-97 Physical Exam: General: NAD, A&Ox3 Lungs: Mild end inspiratory and end expiratory wheezing Heart: RRR, S1S2 Abd: Soft, non-tender, non-distended. Normoactive bowel sounds Neuro: CN 2-12 intact CBCD WBC 18.6 K/mm3 (4.0-10.0) H 09/23/17 06:25 RBC 3.77 M/mm3 (3.60-5.2) 09/23/17 06:25 Hgb 11.9 GM/dL (10.7-15.3) 09/23/17 06:25 Hct 36.7 % (32.4-45.2) 09/23/17 06:25 MCV 97.4 fl (80-96) H 09/23/17 06:25 MCHC 32.5 g/dl (32.0-36.0) 09/23/17 06:25 RDW 14.3 % (11.6-15.6) 09/23/17 06:25 Plt Count 197 K/MM3 (134-434) 09/23/17 06:25 MPV 8.8 fl (7.5-11.1) 09/23/17 06:25 CMP Sodium 137 mmol/L (136-145) 09/22/17 06:50 Potassium 5.0 mmol/L (3.5-5.1) 09/22/17 06:50 Chloride 103 mmol/L (98-107) 09/22/17 06:50 Carbon Dioxide 26 mmol/L (21-32) 09/22/17 06:50 Anion Gap 8 (8-16) 09/22/17 06:50 BUN 30 mg/dL (7-18) H 09/22/17 06:50 Creatinine 1.1 mg/dL (0.55-1.02) H 09/22/17 06:50 Creat Clearance w eGFR 50.84 (>60) 09/22/17 06:50 Random Glucose 262 mg/dL (74-106) H 09/22/17 06:50 Calcium 8.6 mg/dL (8.5-10.1) 09/22/17 06:50 Total Bilirubin 0.3 mg/dL (0.2-1.0) 09/22/17 06:50 AST 11 U/L (15-37) L 09/22/17 06:50 ALT 23 U/L (12-78) 09/22/17 06:50 Alkaline Phosphatase 84 U/L (45-117) 09/22/17 06:50 Total Protein 6.9 g/dl (6.4-8.2) 09/22/17 06:50 Albumin 3.3 g/dl (3.4-5.0) L 09/22/17 06:50 CARDIAC ENZYMES Creatine Kinase 741 IU/L (26-192) H 09/20/17 20:00 Troponin I < 0.02 ng/ml (0.00-0.05) 09/20/17 20:00 Microbiology 09/21/17 16:10 Nasopharyngeal Swab Influenza Types A,B Antigen (SHIRLEY) - Final 09/21/17 16:10 Nasopharyngeal Swab - Final Assessment: This is a 57 year old female with PMHx of COPD, Asthma, multiple PNA , DM, Bipolar, Grave's s/p thyroidectomy who presented to the ED with cough since 08/27/17. Plan: 1) Acute bronchitis with bronchospasms - Recently treated with Levaquin and medrol pack with no relief - Continue Solu-medrol 40mg IVPB q6h, continue current dosage - Levaquin per pulmonary - Continue Duonebs - Continue Symbicort - Chest X-ray with no evidence of pneumonia - Appreciate pulmonary consult 2) Leukocytosis - Likely 2/2 steroids - Afebrile, continue to monitor 3) YESICA - Resolved 4) DM - Continue Metformin 1000mg bid - BGM ACHS - ISS ACHS - Continue Levemir 5) Grave's disease s/p thyroidectomy - Continue Synthroid 6) Bipolar disorder - Continue Lamictal - Continue Seroquel 7) F/E/N: - Diabetic diet Monitor electrolytes 8) Prophylaxis: - OOB ambulating - Heparin 5,000u sq tid 9) Dispo: - Requires continued inpatient care CODE STATUS: FULL CODE Visit type - Emergency Visit Emergency Visit: Yes ED Registration Date: 09/22/17 Care time: The patient presented to the Emergency Department on the above date and was hospitalized for further evaluation of their emergent condition. - New Patient This patient is new to me today: No - Critical Care Critical Care patient: No
[2017-09-23] MEDS: guaiFENesin 200 MG/10 ML 10 ML UNIT-DOSE CUPS PO PRN (21:34)
[2017-09-23] MEDS: QUEtiapine FUMARATE 200 MG TABLET PO SCH (22:51)
[2017-09-24] MEDS: methylPREDNISolone NA SUCC 40 MG/1 ML VIAL IVPB SCH ×2 (02:01→09:15)
[2017-09-24] MEDS: guaiFENesin 200 MG/10 ML 10 ML UNIT-DOSE CUPS PO PRN ×3 (02:01→21:23)
[2017-09-24] MEDS: ALBUTEROL SO4 0.083% IH SOL 2.5 MG/3 ML VIAL.NEB. NEB PRN (02:37)
[2017-09-24] MEDS: HEPARIN NA (PORCINE) 5,000 UNITS/ML 1ML VIAL SQ SCH ×3 (05:59→21:25)
[2017-09-24] MEDS: metFORMIN HCL 500 MG TABLET (FP) PO SCH ×2 (06:03→16:36)
[2017-09-24] MEDS: INSULIN DETEMIR 100 UNITS/ML MDV SQ SCH (06:03)
[2017-09-24] MEDS: LEVOTHYROXINE NA 125 MCG TABLET (FP) PO SCH (06:04)
[2017-09-24] MEDS: INSULIN SLIDING SCALE (NOVOLOG) 1 VIAL SQ SCH ×4 (06:04→21:26)
[2017-09-24 07:06] LABS: HEMATOCRIT 36.6 % (32.4-45.2); HEMOGLOBIN 11.9 GM/dL (10.7-15.3); MCH 31.4 pg (25.7-33.7); MCHC 32.5 g/dl (32.0-36.0); MEAN CELL VOLUME 96.8 fl (80-96); MEAN PLT VOLUME 8.4 fl (7.5-11.1); PLATELET COUNT 210 K/MM3 (134-434); RBC 3.79 M/mm3 (3.60-5.2); RDW 14.6 % (11.6-15.6)
[2017-09-24] MEDS: ALBUTEROL SO4 2.5/IPRATROPIUM 0.5 INH SOL 3 ML VIAL.NEB. NEB SCH ×2 (07:35→11:04)
[2017-09-24 08:04] LABS: ALBUMIN 3.6 g/dl (3.4-5.0); ANION GAP 10 (8-16); BLOOD UREA NITROGEN 33 mg/dL (7-18); CALCIUM 8.7 mg/dL (8.5-10.1); CHLORIDE 99 mmol/L (98-107); CO2 26 mmol/L (21-32); GLUCOSE,RANDOM 237 mg/dL (74-106); POTASSIUM 4.5 mmol/L (3.5-5.1); SGOT/AST 9 U/L (15-37); SGPT/ALT 25 U/L (12-78); SODIUM 135 mmol/L (136-145)
[2017-09-24 08:05] LABS: ALK PHOS 82 U/L (45-117); BILIRUBIN,TOTAL 0.4 mg/dL (0.2-1.0); TOT PROT 7.2 g/dl (6.4-8.2)
[2017-09-24] MEDS: CYANOCOBALAMIN 1,000 MCG TABLET (FP) PO SCH (09:15)
[2017-09-24] MEDS: LOSARTAN POTASSIUM 25 MG TABLET PO SCH (09:15)
[2017-09-24] MEDS: PANTOPRAZOLE 20 MG TABLET (FP) PO SCH (09:16)
[2017-09-24] MEDS: LEVOFLOXACIN 250 MG IVPB 250 MG/50 ML MG IVPB SCH (09:16)
[2017-09-24] MEDS: MAGNESIUM OXIDE 400 MG TABLET (FP) PO SCH (09:16)
[2017-09-24] MEDS ORDERED: PT OWN MED DRAWER 7, Y5N ONE ×2 (09:18→16:54)
[2017-09-24] MEDS: BUDESONIDE/FORMETEROL FUMARATE 160/4.5 mcg INHALER IH SCH ×2 (09:18→21:27)
[2017-09-24] MEDS: lamoTRIgine 100 MG TABLET (FP) PO SCH (09:19)
[2017-09-24] MEDS ORDERED: INSULIN (NOVOLOG) ASPART 100 UNITS/ML 10ML VIAL ONE (11:05)
--- NOTE | 2017-09-24 11:20 | PN ---
Progress Note (short form) - Note Progress Note: PULMONARY States she had a bad night, persistent cough, unable to expectorate sputum, did not sleep due to cough. +wheezing but no fevers. Last Vital Signs Temp Pulse Resp BP Pulse Ox 97.1 F L 96 H 18 131/98 97 09/24/17 09:12 09/24/17 09:12 09/24/17 09:12 09/24/17 09:12 09/24/17 10:00 Intake & Output 09/21/17 09/22/17 09/23/17 09/24/17 23:59 23:59 23:59 23:59 Intake Total 150 300 600 280 Balance 150 300 600 280 Weight 103.192 kg 101.831 kg 102.965 kg Gen: mildly tachypneic with speaking Heart: RRR Lung: bilateral rhonchi, wheezes Abd: soft, nontender Ext: no edema CBC, BMP 09/24/17 06:28 09/24/17 06:28 Active Medications Albuterol Sulfate (Ventolin 0.083% Nebulizer Soln -) 1 amp NEB Q1H PRN PRN Reason: SHORTNESS OF BREATH Last Admin: 09/24/17 02:37 Dose: 1 amp Albuterol/Ipratropium (Duoneb -) 1 amp NEB RQID [facility] Last Admin: 09/24/17 11:04 Dose: 1 amp Budesonide/Formoterol Fumarate (Symbicort 160/4.5mcg -) 2 puff IH BID [facility] Last Admin: 09/24/17 09:18 Dose: Not Given Cyanocobalamin (Vitamin B12 -) 3,000 mcg PO DAILY [facility] Last Admin: 09/24/17 09:15 Dose: 3,000 mcg Diphenhydramine HCl (Benadryl Injection -) 25 mg IVPUSH Q6H [facility] Last Admin: 09/24/17 05:59 Dose: 25 mg Docusate Sodium (Colace -) 100 mg PO BID PRN PRN Reason: CONSTIPATION Guaifenesin (Robitussin -) 10 ml PO Q4H PRN PRN Reason: COUGH Last Admin: 09/24/17 06:07 Dose: 10 ml Heparin Sodium (Porcine) (Heparin -) 5,000 unit SQ TID [facility] Last Admin: 09/24/17 05:59 Dose: 5,000 unit Levofloxacin (Levaquin 250 Mg Premixed Ivpb -) 250 mg in 50 mls @ 50 mls/hr IVPB DAILY [facility] Last Admin: 09/24/17 09:16 Dose: 50 mls/hr Insulin Aspart (Novolog Vial Sliding Scale -) 1 vial SQ ACHS [facility] PRN Reason: Protocol Last Admin: 09/24/17 11:14 Dose: 6 unit Insulin Detemir (Levemir Vial) 20 units SQ ACBK [facility] Last Admin: 09/24/17 06:03 Dose: 20 unit Lamotrigine (Lamictal -) 400 mg PO DAILY [facility] Last Admin: 09/24/17 09:19 Dose: 400 mg Levothyroxine Sodium (Synthroid -) 125 mcg PO DAILY@0700 [facility] Last Admin: 09/24/17 06:04 Dose: 125 mcg Losartan Potassium (Cozaar -) 25 mg PO DAILY [facility] Last Admin: 09/24/17 09:15 Dose: 25 mg Magnesium Oxide (Mag-Ox -) 400 mg PO DAILY [facility] Last Admin: 09/24/17 09:16 Dose: 400 mg Metformin HCl (Glucophage -) 1,000 mg PO BIDAC [facility] Last Admin: 09/24/17 06:03 Dose: 1,000 mg Methylprednisolone Sodium Succinate (Solu-Medrol -) 40 mg IVPB Q6H-IV [facility] Last Admin: 09/24/17 09:15 Dose: 40 mg Pantoprazole Sodium (Protonix -) 20 mg PO DAILY [facility] Last Admin: 09/24/17 09:16 Dose: 20 mg Quetiapine Fumarate (Seroquel -) 400 mg PO HS [facility] Last Admin: 09/23/17 22:51 Dose: Not Given A/P Acute Bronchitis Acute Bronchospasm Acute Kidney Injury improved HTN DM - wishes to retry mucomyst as she does not believe it was a true allergic reaction - will increase medrol to 60mg q6h - change duoneb to spiriva - continue antibiotics - inhaled bronchodilators standing and PRN - chest PT - glucose control while on systemic steroids - humidify O2 - DVT prophylaxis
[2017-09-24] MEDS: ACETYLCYSTEINE 20% 200MG/ML 30 ML VIAL *FOR ORAL / INH USE ONLY NEB SCH ×4 (13:21→20:56)
[2017-09-24] MEDS: ALBUTEROL SO4 0.083% IH SOL 2.5 MG/3 ML VIAL.NEB. NEB SCH ×3 (13:22→20:56)
[2017-09-24] MEDS: TIOTROPIUM BROMIDE 18 MCG/INH (DEVICE W/ 5 CAPSULES) IH SCH (15:01)
[2017-09-24] MEDS: methylPREDNISolone NA SUCC 125 MG/2 ML VIAL IVPB SCH ×2 (15:04→21:23)
--- NOTE | 2017-09-24 17:53 | PN ---
Physical Exam: SUBJECTIVE: Patient seen and examined at the bedside. States she had a "bad night", with coughing. OBJECTIVE: Vital Signs Period Temp Pulse Resp BP Sys/Smith Pulse Ox Last 24 Hr 97.1 F-98.1 F 82-96 18-20 118-159/62-98 96-97 GENERAL: The patient is awake, alert, and fully oriented, in no acute distress. HEAD: Normal with no signs of trauma. EYES: PERRL, extraocular movements intact, sclera anicteric, conjunctiva clear. No ptosis. ENT: Ears normal, nares patent, oropharynx clear without exudates, moist mucous membranes. NECK: Trachea midline, full range of motion, supple. LUNGS: Breath sounds with scattered rhonchi, no wheezing HEART: Regular rate and rhythm, S1, S2 without murmur, rub or gallop. ABDOMEN: Soft, nontender, nondistended, normoactive bowel sounds, no guarding, no rebound, no hepatosplenomegaly, no masses. EXTREMITIES: no edema. NEUROLOGICAL: Normal speech, gait not observed. PSYCH: Normal mood, normal affect. SKIN: Warm, dry, normal turgor, no rashes or lesions noted Laboratory Results - last 24 hr 09/23/17 09/24/17 09/24/17 21:33 05:58 06:28 WBC 18.0 H RBC 3.79 Hgb 11.9 Hct 36.6 MCV 96.8 H MCH 31.4 MCHC 32.5 RDW 14.6 Plt Count 210 MPV 8.4 Sodium Potassium Chloride Carbon Dioxide Anion Gap BUN Creatinine Creat Clearance w eGFR POC Glucometer 340 241 Random Glucose Calcium Total Bilirubin AST ALT Alkaline Phosphatase Total Protein Albumin 09/24/17 09/24/17 09/24/17 06:28 11:08 16:35 WBC RBC Hgb Hct MCV MCH MCHC RDW Plt Count MPV Sodium 135 L Potassium 4.5 Chloride 99 Carbon Dioxide 26 Anion Gap 10 BUN 33 H Creatinine 1.0 Creat Clearance w eGFR 56.75 POC Glucometer 276 235 Random Glucose 237 H Calcium 8.7 Total Bilirubin 0.4 D AST 9 L ALT 25 Alkaline Phosphatase 82 Total Protein 7.2 Albumin 3.6 Active Medications Generic Name Dose Route Start Last Admin Trade Name Freq PRN Reason Stop Dose Admin Acetylcysteine 200 mg 09/24/17 12:00 09/24/17 13:25 Mucomyst 20 Oral / Inh Use Only* NEB Not Given QID [facility] Albuterol Sulfate 1 amp 09/21/17 14:56 09/24/17 02:37 Ventolin 0.083% Nebulizer Soln - NEB 1 amp Q1H PRN Administration SHORTNESS OF BREATH Albuterol Sulfate 1 amp 09/24/17 12:00 09/24/17 13:22 Ventolin 0.083% Nebulizer Soln - NEB 1 amp RQID [facility] Administration Budesonide/Formoterol Fumarate 2 puff 09/21/17 10:00 09/24/17 09:18 Symbicort 160/4.5mcg - IH Not Given BID [facility] Cyanocobalamin 3,000 mcg 09/21/17 10:00 09/24/17 09:15 Vitamin B12 - PO 3,000 mcg DAILY [facility] Administration Diphenhydramine HCl 25 mg 09/22/17 12:00 09/24/17 17:05 Benadryl Injection - IVPUSH 25 mg Q6H [facility] Administration Docusate Sodium 100 mg 09/21/17 03:38 Colace - PO BID PRN CONSTIPATION Guaifenesin 10 ml 09/21/17 03:43 09/24/17 06:07 Robitussin - PO 10 ml Q4H PRN Administration COUGH Heparin Sodium (Porcine) 5,000 unit 09/21/17 06:00 09/24/17 15:01 Heparin - SQ 5,000 unit TID [facility] Administration Levofloxacin 250 mg in 50 mls @ 50 mls/hr 09/21/17 15:45 09/24/17 09:16 Levaquin 250 Mg Premixed Ivpb - IVPB 50 mls/hr DAILY [facility] Administration Insulin Aspart 1 vial 09/21/17 22:00 09/24/17 16:36 Novolog Vial Sliding Scale - SQ 4 unit ACHS [facility] Administration Protocol Insulin Detemir 20 units 09/21/17 07:00 09/24/17 06:03 Levemir Vial SQ 20 unit ACBK [facility] Administration Lamotrigine 400 mg 09/21/17 10:00 09/24/17 09:19 Lamictal - PO 400 mg DAILY [facility] Administration Levothyroxine Sodium 125 mcg 09/21/17 07:00 09/24/17 06:04 Synthroid - PO 125 mcg DAILY@0700 [facility] Administration Losartan Potassium 25 mg 09/21/17 10:00 09/24/17 09:15 Cozaar - PO 25 mg DAILY [facility] Administration Magnesium Oxide 400 mg 09/21/17 10:00 09/24/17 09:16 Mag-Ox - PO 400 mg DAILY [facility] Administration Metformin HCl 1,000 mg 09/22/17 18:00 09/24/17 16:36 Glucophage - PO 1,000 mg BIDAC [facility] Administration Methylprednisolone Sodium Succinate 60 mg 09/24/17 11:23 09/24/17 15:04 Solu-Medrol - IVPB 60 mg Q6H-IV [facility] Administration Pantoprazole Sodium 20 mg 09/21/17 10:00 09/24/17 09:16 Protonix - PO 20 mg DAILY [facility] Administration Quetiapine Fumarate 400 mg 09/22/17 08:23 09/23/17 22:51 Seroquel - PO Not Given HS [facility] Tiotropium [place] 1 puff 09/24/17 11:30 09/24/17 15:01 Spiriva - IH 1 puff DAILY [facility] Administration ASSESSMENT/PLAN: Patient is a 57 year old female with a past medical history of COPD, asthma, pneumonia, diabetes, bipolar disorder and graves disease s/p thyroidectomy. She presents to the ED with a persistent cough and was found to be in acugte exacerbation of COPD. Pulmonary: COPD/Acute bronchitis with bronchospasms On Solumedrol 60mg q6 as per Pulmonary Continues to have episodes of coughing Monitor respiratory status Levaquin 250mg daily Robitussin prn Duonebs, oxygen as needed Pulm following Diabetes Monitor bgms, Levemir, Metformin BID [facility]. Fluids: tolerating PO Electrolytes: monitor Nutrition: diabetic diet Prophylaxis: DVT: heparin Gi: Protonix Visit type - Emergency Visit Emergency Visit: Yes ED Registration Date: 09/22/17 Care time: The patient presented to the Emergency Department on the above date and was hospitalized for further evaluation of their emergent condition. - New Patient This patient is new to me today: Yes Date on this admission: 10/01/17 - Critical Care Critical Care patient: No - Discharge Referral Referred to [facility] Med P.C.: No
[2017-09-24] MEDS: QUEtiapine FUMARATE 200 MG TABLET PO SCH (21:27)
[2017-09-25] MEDS: ALBUTEROL SO4 0.083% IH SOL 2.5 MG/3 ML VIAL.NEB. NEB PRN (02:09)
[2017-09-25] MEDS: guaiFENesin 200 MG/10 ML 10 ML UNIT-DOSE CUPS PO PRN ×2 (02:30→09:17)
[2017-09-25] MEDS: methylPREDNISolone NA SUCC 125 MG/2 ML VIAL IVPB SCH ×4 (02:30→22:56)
[2017-09-25] MEDS ORDERED: PT OWN MED DRAWER 7, Y5N ONE (05:57)
[2017-09-25] MEDS: metFORMIN HCL 500 MG TABLET (FP) PO SCH ×2 (06:50→17:00)
[2017-09-25] MEDS: INSULIN SLIDING SCALE (NOVOLOG) 1 VIAL SQ SCH ×4 (06:50→22:57)
[2017-09-25] MEDS: LEVOTHYROXINE NA 125 MCG TABLET (FP) PO SCH (06:50)
[2017-09-25] MEDS: HEPARIN NA (PORCINE) 5,000 UNITS/ML 1ML VIAL SQ SCH ×3 (06:51→22:56)
[2017-09-25] MEDS: INSULIN DETEMIR 100 UNITS/ML MDV SQ SCH (06:51)
[2017-09-25 08:07] LABS: CHLORIDE 100 mmol/L (98-107); POTASSIUM 4.2 mmol/L (3.5-5.1); SODIUM 137 mmol/L (136-145)
[2017-09-25 08:10] LABS: HEMATOCRIT 36.1 % (32.4-45.2); HEMOGLOBIN 11.7 GM/dL (10.7-15.3); MCH 31.5 pg (25.7-33.7); MCHC 32.4 g/dl (32.0-36.0); MEAN CELL VOLUME 97.1 fl (80-96); MEAN PLT VOLUME 8.9 fl (7.5-11.1); PLATELET COUNT 209 K/MM3 (134-434); RBC 3.72 M/mm3 (3.60-5.2); WHITE BLOOD COUNT 17.5 K/mm3 (4.0-10.0)
[2017-09-25] MEDS: ALBUTEROL SO4 0.083% IH SOL 2.5 MG/3 ML VIAL.NEB. NEB SCH ×4 (08:16→20:30)
[2017-09-25 08:17] LABS: ALBUMIN 3.4 g/dl (3.4-5.0); ALK PHOS 79 U/L (45-117); ANION GAP 13 (8-16); BILIRUBIN,TOTAL 0.3 mg/dL (0.2-1.0); BLOOD UREA NITROGEN 30 mg/dL (7-18); CALCIUM 8.9 mg/dL (8.5-10.1); CO2 24 mmol/L (21-32); GLUCOSE,RANDOM 251 mg/dL (74-106); MAGNESIUM 2.3 mg/dL (1.8-2.4); SGOT/AST 12 U/L (15-37); SGPT/ALT 25 U/L (12-78)
[2017-09-25] MEDS: ACETYLCYSTEINE 20% 200MG/ML 30 ML VIAL *FOR ORAL / INH USE ONLY NEB SCH ×4 (08:17→20:30)
[2017-09-25] MEDS: TIOTROPIUM BROMIDE 18 MCG/INH (DEVICE W/ 5 CAPSULES) IH SCH (09:16)
[2017-09-25] MEDS: LEVOFLOXACIN 250 MG IVPB 250 MG/50 ML MG IVPB SCH (09:16)
[2017-09-25] MEDS: lamoTRIgine 100 MG TABLET (FP) PO SCH (09:17)
[2017-09-25] MEDS: MAGNESIUM OXIDE 400 MG TABLET (FP) PO SCH (09:18)
[2017-09-25] MEDS: LOSARTAN POTASSIUM 25 MG TABLET PO SCH (09:18)
[2017-09-25] MEDS: CYANOCOBALAMIN 1,000 MCG TABLET (FP) PO SCH (09:19)
[2017-09-25] MEDS: PANTOPRAZOLE 20 MG TABLET (FP) PO SCH (09:19)
[2017-09-25] MEDS: BUDESONIDE/FORMETEROL FUMARATE 160/4.5 mcg INHALER IH SCH ×2 (10:00→22:23)
--- NOTE | 2017-09-25 10:54 | PN ---
Progress Note (short form) - Note Progress Note: PULMONARY Had a better night. States chest feels slightly looser but still with persistent cough, wheezing and shortness of breath. Last Vital Signs Temp Pulse Resp BP Pulse Ox 97.6 F 86 18 137/83 97 09/25/17 09:49 09/25/17 09:49 09/25/17 09:49 09/25/17 09:49 09/24/17 21:00 Gen: mildly tachypneic with speaking Heart: RRR Lung: bilateral rhonchi, wheezes Abd: soft, nontender Ext: no edema CBC, BMP 09/25/17 06:30 09/25/17 06:30 Active Medications Acetylcysteine (Mucomyst 20 Oral / Inh Use Only*) 200 mg NEB RQID [facility] Last Admin: 09/25/17 08:17 Dose: 200 mg Albuterol Sulfate (Ventolin 0.083% Nebulizer Soln -) 1 amp NEB Q1H PRN PRN Reason: SHORTNESS OF BREATH Last Admin: 09/25/17 02:09 Dose: 1 amp Albuterol Sulfate (Ventolin 0.083% Nebulizer Soln -) 1 amp NEB RQID [facility] Last Admin: 09/25/17 08:16 Dose: 1 amp Budesonide/Formoterol Fumarate (Symbicort 160/4.5mcg -) 2 puff IH BID [facility] Last Admin: 09/24/17 21:27 Dose: Not Given Cyanocobalamin (Vitamin B12 -) 3,000 mcg PO DAILY [facility] Last Admin: 09/25/17 09:19 Dose: 3,000 mcg Diphenhydramine HCl (Benadryl Injection -) 25 mg IVPUSH Q6H [facility] Last Admin: 09/25/17 06:51 Dose: 25 mg Docusate Sodium (Colace -) 100 mg PO BID PRN PRN Reason: CONSTIPATION Guaifenesin (Robitussin -) 10 ml PO Q4H PRN PRN Reason: COUGH Last Admin: 09/25/17 09:17 Dose: 10 ml Heparin Sodium (Porcine) (Heparin -) 5,000 unit SQ TID [facility] Last Admin: 09/25/17 06:51 Dose: 5,000 unit Levofloxacin (Levaquin 250 Mg Premixed Ivpb -) 250 mg in 50 mls @ 50 mls/hr IVPB DAILY [facility] Last Admin: 09/25/17 09:16 Dose: 50 mls/hr Insulin Aspart (Novolog Vial Sliding Scale -) 1 vial SQ ACHS [facility] PRN Reason: Protocol Last Admin: 09/25/17 06:50 Dose: 4 unit Insulin Detemir (Levemir Vial) 20 units SQ ACBK [facility] Last Admin: 09/25/17 06:51 Dose: 20 unit Lamotrigine (Lamictal -) 400 mg PO DAILY [facility] Last Admin: 09/25/17 09:17 Dose: 400 mg Levothyroxine Sodium (Synthroid -) 125 mcg PO DAILY@0700 [facility] Last Admin: 09/25/17 06:50 Dose: 125 mcg Losartan Potassium (Cozaar -) 25 mg PO DAILY [facility] Last Admin: 09/25/17 09:18 Dose: 25 mg Magnesium Oxide (Mag-Ox -) 400 mg PO DAILY [facility] Last Admin: 09/25/17 09:18 Dose: 400 mg Metformin HCl (Glucophage -) 1,000 mg PO BIDAC [facility] Last Admin: 09/25/17 06:50 Dose: 1,000 mg Methylprednisolone Sodium Succinate (Solu-Medrol -) 60 mg IVPB Q6H-IV [facility] Last Admin: 09/25/17 09:18 Dose: 60 mg Pantoprazole Sodium (Protonix -) 20 mg PO DAILY [facility] Last Admin: 09/25/17 09:19 Dose: 20 mg Quetiapine Fumarate (Seroquel -) 400 mg PO HS [facility] Last Admin: 09/24/17 21:27 Dose: Not Given Tiotropium [place] (Spiriva -) 1 puff IH DAILY [facility] Last Admin: 09/25/17 09:16 Dose: 1 puff A/P Acute Bronchitis Acute Bronchospasm Acute Kidney Injury improved HTN DM - continue standing mucomyst/albuterol - continue medrol at 60mg q6h - spiriva - continue antibiotics - if continues to feel better tomorrow, will consider decreasing medrol - chest PT - glucose control while on systemic steroids - humidify O2 - DVT prophylaxis
[2017-09-25] MEDS ORDERED: INSULIN (NOVOLOG) ASPART 100 UNITS/ML 10ML VIAL ONE (11:04)
[2017-09-25 12:22] LABS: ANISOCYTOSIS 0; MACROCYTOSIS 0; PLATELET ESTIMATE NORMAL
--- NOTE | 2017-09-25 12:34 | PN ---
Physical Exam: SUBJECTIVE: Patient seen and examined at the bedside. Reports her night was better, but still feels very congested. OBJECTIVE: Incentive spirometer Tighten glucose sliding scale for elevated blood sugars Vital Signs Period Temp Pulse Resp BP Sys/Smith Pulse Ox Last 24 Hr 97.6 F-98 F 83-88 18-20 137-156/66-83 95-97 GENERAL: The patient is awake, alert, and fully oriented, in no acute distress. HEAD: Normal with no signs of trauma. EYES: PERRL, extraocular movements intact, sclera anicteric, conjunctiva clear. No ptosis. ENT: Ears normal, nares patent, oropharynx clear without exudates, moist mucous membranes. NECK: Trachea midline, full range of motion, supple. LUNGS: Breath sounds with scattered rhonchi, no wheezing HEART: Regular rate and rhythm, S1, S2 without murmur, rub or gallop. ABDOMEN: Soft, nontender, nondistended, normoactive bowel sounds, no guarding, no rebound, no hepatosplenomegaly, no masses. EXTREMITIES: no edema. NEUROLOGICAL: Normal speech, gait not observed. PSYCH: Normal mood, normal affect. SKIN: Warm, dry, normal turgor, no rashes or lesions noted Laboratory Results - last 24 hr 09/24/17 09/24/17 09/25/17 16:35 21:21 06:20 WBC RBC Hgb Hct MCV MCH MCHC RDW Plt Count MPV Neutrophils % Lymphocytes % Sodium Potassium Chloride Carbon Dioxide Anion Gap BUN Creatinine Creat Clearance w eGFR POC Glucometer 235 380 221 Random Glucose Calcium Magnesium Total Bilirubin AST ALT Alkaline Phosphatase Total Protein Albumin 09/25/17 09/25/17 09/25/17 06:30 06:30 11:13 WBC 17.5 H RBC 3.72 Hgb 11.7 Hct 36.1 MCV 97.1 H MCH 31.5 MCHC 32.4 RDW 15.0 Plt Count 209 MPV 8.9 Neutrophils % No Result Required. Lymphocytes % No Result Required. Sodium 137 Potassium 4.2 Chloride 100 Carbon Dioxide 24 Anion Gap 13 BUN 30 H Creatinine 1.0 Creat Clearance w eGFR 56.75 POC Glucometer 215 Random Glucose 251 H Calcium 8.9 Magnesium 2.3 Total Bilirubin 0.3 D AST 12 L ALT 25 Alkaline Phosphatase 79 Total Protein 7.0 Albumin 3.4 Active Medications Generic Name Dose Route Start Last Admin Trade Name Freq PRN Reason Stop Dose Admin Acetylcysteine 200 mg 09/24/17 21:15 09/25/17 08:17 Mucomyst 20 Oral / Inh Use Only* NEB 200 mg RQID MICHELL Administration Albuterol Sulfate 1 amp 09/21/17 14:56 09/25/17 02:09 Ventolin 0.083% Nebulizer Soln - NEB 1 amp Q1H PRN Administration SHORTNESS OF BREATH Albuterol Sulfate 1 amp 09/24/17 12:00 09/25/17 08:16 Ventolin 0.083% Nebulizer Soln - NEB 1 amp RQID MICHELL Administration Budesonide/Formoterol Fumarate 2 puff 09/21/17 10:00 09/25/17 10:00 Symbicort 160/4.5mcg - IH Not Given BID [facility] TO [facility] Cyanocobalamin 3,000 mcg 09/21/17 10:00 09/25/17 09:19 Vitamin B12 - PO 3,000 mcg DAILY [facility] Administration Diphenhydramine HCl 50 mg 09/25/17 12:32 Benadryl Injection - IVPUSH Q6H [facility] TO [facility] Docusate Sodium 100 mg 09/21/17 03:38 Colace - PO BID PRN CONSTIPATION Guaifenesin 10 ml 09/21/17 03:43 09/25/17 09:17 Robitussin - PO 10 ml Q4H PRN Administration COUGH Heparin Sodium (Porcine) 5,000 unit 09/21/17 06:00 09/25/17 06:51 Heparin - SQ 5,000 unit TID [facility] Administration Levofloxacin 250 mg in 50 mls @ 50 mls/hr 09/21/17 15:45 09/25/17 09:16 Levaquin 250 Mg Premixed Ivpb - IVPB 50 mls/hr DAILY [facility] Administration Insulin Aspart 1 vial 09/25/17 12:33 Novolog Vial Sliding Scale - SQ ACHS [facility] Protocol Insulin Detemir 25 units 09/25/17 12:33 Levemir Vial SQ ACBK [facility] Lamotrigine 400 mg 09/21/17 10:00 09/25/17 09:17 Lamictal - PO 400 mg DAILY [facility] Administration Levothyroxine Sodium 125 mcg 09/21/17 07:00 09/25/17 06:50 Synthroid - PO 125 mcg DAILY@0700 MICHELL Administration Losartan Potassium 25 mg 09/21/17 10:00 09/25/17 09:18 Cozaar - PO 25 mg DAILY MICHELL Administration Magnesium Oxide 400 mg 09/21/17 10:00 09/25/17 09:18 Mag-Ox - PO 400 mg DAILY MICHELL Administration Metformin HCl 1,000 mg 09/22/17 18:00 09/25/17 06:50 Glucophage - PO 1,000 mg BIDAC MICHELL Administration Methylprednisolone Sodium Succinate 60 mg 09/24/17 11:23 09/25/17 09:18 Solu-Medrol - IVPB 60 mg Q6H-IV MICHELL Administration Pantoprazole Sodium 20 mg 09/21/17 10:00 09/25/17 09:19 Protonix - PO 20 mg DAILY MICHELL Administration Quetiapine Fumarate 400 mg 09/22/17 08:23 09/24/17 21:27 Seroquel - PO Not Given HS MICHELL Tiotropium [place] 1 puff 09/24/17 11:30 09/25/17 09:16 Spiriva - IH 1 puff DAILY MICHELL Administration ASSESSMENT/PLAN: Patient is a 57 year old female with a past medical history of COPD, asthma, pneumonia, diabetes, bipolar disorder and graves disease s/p thyroidectomy. She presents to the ED with a persistent cough and was found to be in acute exacerbation of COPD. Pulmonary: COPD/Acute bronchitis with bronchospasms On Solumedrol 60mg q6 as per Pulmonary Continues to have episodes of coughing with congestion Monitor respiratory status Levaquin 250mg daily Robitussin prn Duonebs, oxygen as needed Patient encouraged to use oxygen overnight Pulm following Endocrine: Diabetes Monitor bgms, Levemir, Metformin BID Psyche: Bipolar disorder, chronic On Lamital and Seroquel Monitor F.E.N. Fluids: tolerating PO Electrolytes: monitor Nutrition: diabetic diet Prophylaxis: DVT: heparin Gi: Protonix Disposition: full code. Visit type - Emergency Visit Emergency Visit: Yes ED Registration Date: 09/22/17 Care time: The patient presented to the Emergency Department on the above date and was hospitalized for further evaluation of their emergent condition. - New Patient This patient is new to me today: No - Critical Care Critical Care patient: No - Discharge Referral Referred to [facility] Med P.C.: No
[2017-09-25] MEDS: QUEtiapine FUMARATE 200 MG TABLET PO SCH (22:23)
[2017-09-26] MEDS: methylPREDNISolone NA SUCC 125 MG/2 ML VIAL IVPB SCH ×4 (04:18→23:05)
[2017-09-26] MEDS ORDERED: PT OWN MED DRAWER 7, Y5N ONE (05:13)
[2017-09-26] MEDS: LEVOTHYROXINE NA 125 MCG TABLET (FP) PO SCH (06:12)
[2017-09-26] MEDS: metFORMIN HCL 500 MG TABLET (FP) PO SCH ×2 (06:12→17:09)
[2017-09-26] MEDS: HEPARIN NA (PORCINE) 5,000 UNITS/ML 1ML VIAL SQ SCH ×3 (06:21→23:05)
[2017-09-26] MEDS: INSULIN DETEMIR 100 UNITS/ML MDV SQ SCH (06:22)
[2017-09-26] MEDS: INSULIN SLIDING SCALE (NOVOLOG) 1 VIAL SQ SCH ×4 (06:22→23:06)
[2017-09-26] MEDS: ALBUTEROL SO4 0.083% IH SOL 2.5 MG/3 ML VIAL.NEB. NEB SCH ×4 (08:00→21:31)
[2017-09-26] MEDS: ACETYLCYSTEINE 20% 200MG/ML 30 ML VIAL *FOR ORAL / INH USE ONLY NEB SCH ×4 (08:00→21:31)
[2017-09-26] MEDS: CYANOCOBALAMIN 1,000 MCG TABLET (FP) PO SCH (09:31)
[2017-09-26] MEDS: LEVOFLOXACIN 250 MG IVPB 250 MG/50 ML MG IVPB SCH (09:31)
[2017-09-26] MEDS: TIOTROPIUM BROMIDE 18 MCG/INH (DEVICE W/ 5 CAPSULES) IH SCH (09:31)
[2017-09-26] MEDS: guaiFENesin 200 MG/10 ML 10 ML UNIT-DOSE CUPS PO PRN (09:32)
[2017-09-26] MEDS: LOSARTAN POTASSIUM 25 MG TABLET PO SCH (09:32)
[2017-09-26] MEDS: PANTOPRAZOLE 20 MG TABLET (FP) PO SCH (09:32)
[2017-09-26] MEDS: MAGNESIUM OXIDE 400 MG TABLET (FP) PO SCH (09:32)
[2017-09-26] MEDS: lamoTRIgine 100 MG TABLET (FP) PO SCH (09:33)
[2017-09-26] MEDS: BUDESONIDE/FORMETEROL FUMARATE 160/4.5 mcg INHALER IH SCH ×2 (10:06→23:08)
--- NOTE | 2017-09-26 12:56 | PN ---
Progress Note, Physician History of Present Illness: pulmonary alert,+cough,+congestion - Current Medication List Current Medications: Active Medications Acetylcysteine (Mucomyst 20 Oral / Inh Use Only*) 200 mg NEB RQID [facility] Last Admin: 09/26/17 11:48 Dose: 200 mg Albuterol Sulfate (Ventolin 0.083% Nebulizer Soln -) 1 amp NEB Q1H PRN PRN Reason: SHORTNESS OF BREATH Last Admin: 09/25/17 02:09 Dose: 1 amp Albuterol Sulfate (Ventolin 0.083% Nebulizer Soln -) 1 amp NEB RQID [facility] Last Admin: 09/26/17 11:48 Dose: 1 amp Budesonide/Formoterol Fumarate (Symbicort 160/4.5mcg -) 2 puff IH BID [facility] Last Admin: 09/26/17 10:06 Dose: Not Given Cyanocobalamin (Vitamin B12 -) 3,000 mcg PO DAILY [facility] Last Admin: 09/26/17 09:31 Dose: 3,000 mcg Diphenhydramine HCl (Benadryl Injection -) 50 mg IVPUSH Q6H PRN Last Admin: 09/26/17 06:22 Dose: 50 mg Docusate Sodium (Colace -) 100 mg PO BID PRN PRN Reason: CONSTIPATION Guaifenesin (Robitussin -) 10 ml PO Q4H PRN PRN Reason: COUGH Last Admin: 09/26/17 09:32 Dose: 10 ml Heparin Sodium (Porcine) (Heparin -) 5,000 unit SQ TID [facility] Last Admin: 09/26/17 06:21 Dose: 5,000 unit Levofloxacin (Levaquin 250 Mg Premixed Ivpb -) 250 mg in 50 mls @ 50 mls/hr IVPB DAILY [facility] Last Admin: 09/26/17 09:31 Dose: 50 mls/hr Insulin Aspart (Novolog Vial Sliding Scale -) 1 vial SQ ACHS [facility] PRN Reason: Protocol Last Admin: 09/26/17 11:19 Dose: 8 units Insulin Detemir (Levemir Vial) 25 units SQ ACBK [facility] Last Admin: 09/26/17 06:22 Dose: 25 unit Lamotrigine (Lamictal -) 400 mg PO DAILY [facility] Last Admin: 09/26/17 09:33 Dose: 400 mg Levothyroxine Sodium (Synthroid -) 125 mcg PO DAILY@0700 [facility] Last Admin: 09/26/17 06:12 Dose: 125 mcg Losartan Potassium (Cozaar -) 25 mg PO DAILY [facility] Last Admin: 09/26/17 09:32 Dose: 25 mg Magnesium Oxide (Mag-Ox -) 400 mg PO DAILY [facility] Last Admin: 09/26/17 09:32 Dose: 400 mg Metformin HCl (Glucophage -) 1,000 mg PO BIDAC [facility] Last Admin: 09/26/17 06:12 Dose: 1,000 mg Methylprednisolone Sodium Succinate (Solu-Medrol -) 60 mg IVPB Q6H-IV [facility] Last Admin: 09/26/17 09:30 Dose: 60 mg Pantoprazole Sodium (Protonix -) 20 mg PO DAILY [facility] Last Admin: 09/26/17 09:32 Dose: 20 mg Quetiapine Fumarate (Seroquel -) 400 mg PO HS [facility] Last Admin: 09/25/17 22:23 Dose: Not Given Tiotropium [place] (Spiriva -) 1 puff IH DAILY [facility] Last Admin: 09/26/17 09:31 Dose: 1 puff - Objective Vital Signs: Vital Signs Temperature 97.7 F 09/26/17 10:00 Pulse Rate 87 09/26/17 10:00 Respiratory Rate 18 09/26/17 10:00 Blood Pressure 152/64 09/26/17 10:00 O2 Sat by Pulse Oximetry (%) 97 09/25/17 21:00 Constitutional: Yes: Well Nourished, Calm Eyes: Yes: WNL HENT: Yes: WNL Neck: Yes: WNL Cardiovascular: Yes: Regular Rate and Rhythm, S1, S2 Respiratory: Yes: Rhonchi, Wheezes (dipti wheezes and rhonchi) Gastrointestinal: Yes: Normal Bowel Sounds, Soft Extremities: Yes: WNL Edema: No Labs: CBC, BMP Problem List - Problems (1) Bronchitis Code(s): J40 - BRONCHITIS, NOT SPECIFIED ACUTE OR CHRONIC (2) COPD exacerbation Code(s): J44.1 - CHRONIC OBSTRUCTIVE PULMONARY DISEASE W (ACUTE) EXACERBATION (3) Hyperglycemia Code(s): R73.9 - HYPERGLYCEMIA, UNSPECIFIED Assessment/Plan A/P Acute Bronchitis Acute Bronchospasm Acute Kidney Injury improved HTN DM - continue standing mucomyst/albuterol - continue medrol at 60mg q6h - spiriva - continue antibiotics - chest PT - glucose control while on systemic steroids - humidify O2 - DVT prophylaxis - ANTI-TUSSIVES DR BEAUCHAMP
--- NOTE | 2017-09-26 16:29 | PN ---
Physical Exam: SUBJECTIVE: Patient seen and examined at the bedside. Still c/o of congestion, non productive cough. Unable to rest/sleep at night. OBJECTIVE: Melatonin ordered Steriod taper as per pulm Vital Signs Period Temp Pulse Resp BP Sys/Smith Pulse Ox Last 24 Hr 97.6 F-98.7 F 72-91 18-20 147-161/64-78 97 GENERAL: The patient is awake, alert, and fully oriented, in no acute distress. HEAD: Normal with no signs of trauma. EYES: PERRL, extraocular movements intact, sclera anicteric, conjunctiva clear. No ptosis. ENT: Ears normal, nares patent, oropharynx clear without exudates, moist mucous membranes. NECK: Trachea midline, full range of motion, supple. LUNGS: Breath sounds with scattered rhonchi, mild scattered wheezing, non productive cough HEART: Regular rate and rhythm, S1, S2 without murmur, rub or gallop. ABDOMEN: Soft, nontender, nondistended, normoactive bowel sounds, no guarding, no rebound, no hepatosplenomegaly, no masses. EXTREMITIES: no edema. NEUROLOGICAL: Normal speech, gait not observed. PSYCH: Normal mood, normal affect. SKIN: Warm, dry, normal turgor, no rashes or lesions noted Laboratory Results - last 24 hr 09/25/17 09/25/17 09/26/17 16:58 21:45 06:11 POC Glucometer 312 207 218 09/26/17 11:12 POC Glucometer 275 Active Medications Generic Name Dose Route Start Last Admin Trade Name Freq PRN Reason Stop Dose Admin Acetylcysteine 200 mg 09/24/17 21:15 09/26/17 11:48 Mucomyst 20 Oral / Inh Use Only* NEB 200 mg RQID MICHELL Administration Albuterol Sulfate 1 amp 09/24/17 12:00 09/26/17 11:48 Ventolin 0.083% Nebulizer Soln - NEB 1 amp RQID MICHELL Administration Budesonide/Formoterol Fumarate 2 puff 09/21/17 10:00 09/26/17 10:06 Symbicort 160/4.5mcg - IH Not Given BID MICHELL Cyanocobalamin 3,000 mcg 09/21/17 10:00 09/26/17 09:31 Vitamin B12 - PO 3,000 mcg DAILY MICHELL Administration Diphenhydramine HCl 50 mg 09/26/17 13:57 Benadryl Injection - IVPUSH Q6H PRN FOR ITCHING Docusate Sodium 100 mg 09/21/17 03:38 Colace - PO BID PRN CONSTIPATION Guaifenesin 10 ml 09/21/17 03:43 09/26/17 09:32 Robitussin - PO 10 ml Q4H PRN Administration COUGH Heparin Sodium (Porcine) 5,000 unit 09/21/17 06:00 09/26/17 14:44 Heparin - SQ 5,000 unit TID MICHELL Administration Levofloxacin 250 mg in 50 mls @ 50 mls/hr 09/21/17 15:45 09/26/17 09:31 Levaquin 250 Mg Premixed Ivpb - IVPB 50 mls/hr DAILY MICHELL Administration Insulin Aspart 1 vial 09/25/17 12:33 09/26/17 11:19 Novolog Vial Sliding Scale - SQ 8 units ACHS MICHELL Administration Protocol Insulin Detemir 25 units 09/26/17 07:00 09/26/17 06:22 Levemir Vial SQ 25 unit ACBK [facility] Administration Lamotrigine 400 mg 09/21/17 10:00 09/26/17 09:33 Lamictal - PO 400 mg DAILY MICHELL Administration Levothyroxine Sodium 125 mcg 09/21/17 07:00 09/26/17 06:12 Synthroid - PO 125 mcg DAILY@0700 MICHELL Administration Losartan Potassium 25 mg 09/21/17 10:00 09/26/17 09:32 Cozaar - PO 25 mg DAILY MICHELL Administration Magnesium Oxide 400 mg 09/21/17 10:00 09/26/17 09:32 Mag-Ox - PO 400 mg DAILY MICHELL Administration Melatonin 10 mg 09/26/17 22:00 Melatonin PO HS MICHELL Metformin HCl 1,000 mg 09/22/17 18:00 09/26/17 06:12 Glucophage - PO 1,000 mg BIDAC MICHELL Administration Methylprednisolone Sodium Succinate 60 mg 09/24/17 11:23 09/26/17 14:44 Solu-Medrol - IVPB 60 mg Q6H-IV MICHELL Administration Pantoprazole Sodium 20 mg 09/21/17 10:00 09/26/17 09:32 Protonix - PO 20 mg DAILY MICHELL Administration Quetiapine Fumarate 400 mg 09/22/17 08:23 09/25/17 22:23 Seroquel - PO Not Given HS MICHELL Tiotropium [place] 1 puff 09/24/17 11:30 09/26/17 09:31 Spiriva - IH 1 puff DAILY MICHELL Administration ASSESSMENT/PLAN: Patient is a 57 year old female with a past medical history of COPD, asthma, pneumonia, diabetes, bipolar disorder and graves disease s/p thyroidectomy. She presents to the ED with a persistent cough and was found to be in acute exacerbation of COPD. Pulmonary: COPD/Acute bronchitis with bronchospasms On Solumedrol 60mg q6 as per Pulmonary Continues to have episodes of coughing with congestion, non productive cough Monitor respiratory status Levaquin 250mg daily Robitussin prn Duonebs, oxygen as needed Patient encouraged to use oxygen overnight Pulm following Endocrine: Diabetes Monitor bgms, Levemir, Metformin BID Psyche: Bipolar disorder, chronic/stable On Lamital and Seroquel Monitor F.E.N. Fluids: tolerating PO Electrolytes: monitor Nutrition: diabetic diet Prophylaxis: DVT: heparin Gi: Protonix Disposition: full code. Discharge once cleared by pulmonary. Respiratory pre and post prior to d/c. Visit type - Emergency Visit Emergency Visit: Yes ED Registration Date: 09/22/17 Care time: The patient presented to the Emergency Department on the above date and was hospitalized for further evaluation of their emergent condition. - New Patient This patient is new to me today: No - Critical Care Critical Care patient: No - Discharge Referral Referred to [facility] Med P.C.: No
[2017-09-26] MEDS ORDERED: INSULIN (NOVOLOG) ASPART 100 UNITS/ML 10ML VIAL ONE ×2 (17:47→21:08)
[2017-09-26] MEDS ORDERED: INSULIN DETEMIR 100 UNITS/ML MDV SQ ONE (21:08)
[2017-09-26] MEDS: MELATONIN 5 MG TABLETS PO SCH (23:10)
[2017-09-26] MEDS: QUEtiapine FUMARATE 200 MG TABLET PO SCH (23:14)
[2017-09-27] MEDS: methylPREDNISolone NA SUCC 125 MG/2 ML VIAL IVPB SCH ×3 (03:03→16:37)
[2017-09-27] MEDS: metFORMIN HCL 500 MG TABLET (FP) PO SCH ×2 (06:25→17:31)
[2017-09-27] MEDS: HEPARIN NA (PORCINE) 5,000 UNITS/ML 1ML VIAL SQ SCH ×3 (06:26→21:59)
[2017-09-27] MEDS: INSULIN DETEMIR 100 UNITS/ML MDV SQ SCH (06:26)
[2017-09-27] MEDS: INSULIN SLIDING SCALE (NOVOLOG) 1 VIAL SQ SCH ×4 (06:27→22:00)
[2017-09-27] MEDS: LEVOTHYROXINE NA 125 MCG TABLET (FP) PO SCH (06:28)
[2017-09-27] MEDS ORDERED: INSULIN DETEMIR 100 UNITS/ML MDV SQ ONE ×2 (07:14→22:04)
[2017-09-27] MEDS ORDERED: INSULIN (NOVOLOG) ASPART 100 UNITS/ML 10ML VIAL ONE ×3 (07:14→22:04)
[2017-09-27 07:54] LABS: HEMATOCRIT 35.9 % (32.4-45.2); HEMOGLOBIN 11.5 GM/dL (10.7-15.3); MCH 31.4 pg (25.7-33.7); MCHC 32.1 g/dl (32.0-36.0); MEAN CELL VOLUME 97.6 fl (80-96); MEAN PLT VOLUME 8.7 fl (7.5-11.1); PLATELET COUNT 199 K/MM3 (134-434); RBC 3.68 M/mm3 (3.60-5.2); RDW 14.5 % (11.6-15.6); WHITE BLOOD COUNT 19.8 K/mm3 (4.0-10.0)
[2017-09-27] MEDS: ALBUTEROL SO4 0.083% IH SOL 2.5 MG/3 ML VIAL.NEB. NEB SCH ×4 (08:00→20:00)
[2017-09-27] MEDS: ACETYLCYSTEINE 20% 200MG/ML 30 ML VIAL *FOR ORAL / INH USE ONLY NEB SCH ×4 (08:00→20:00)
[2017-09-27 08:16] LABS: CHLORIDE 101 mmol/L (98-107); POTASSIUM 4.7 mmol/L (3.5-5.1); SODIUM 140 mmol/L (136-145)
[2017-09-27 08:25] LABS: ALBUMIN 3.1 g/dl (3.4-5.0); ALK PHOS 69 U/L (45-117); ANION GAP 10 (8-16); BILIRUBIN,TOTAL 0.3 mg/dL (0.2-1.0); BLOOD UREA NITROGEN 34 mg/dL (7-18); CALCIUM 9.1 mg/dL (8.5-10.1); CO2 29 mmol/L (21-32); GLUCOSE,RANDOM 214 mg/dL (74-106); MAGNESIUM 2.2 mg/dL (1.8-2.4); SGOT/AST 9 U/L (15-37); SGPT/ALT 24 U/L (12-78); TOT PROT 6.5 g/dl (6.4-8.2)
[2017-09-27] MEDS ORDERED: PT OWN MED DRAWER 7, Y5N ONE (09:09)
[2017-09-27] MEDS: LEVOFLOXACIN 250 MG IVPB 250 MG/50 ML MG IVPB SCH (09:30)
[2017-09-27] MEDS: PANTOPRAZOLE 20 MG TABLET (FP) PO SCH (09:31)
[2017-09-27] MEDS: LOSARTAN POTASSIUM 25 MG TABLET PO SCH (09:31)
[2017-09-27] MEDS: CYANOCOBALAMIN 1,000 MCG TABLET (FP) PO SCH (09:31)
[2017-09-27] MEDS: lamoTRIgine 100 MG TABLET (FP) PO SCH (09:32)
[2017-09-27] MEDS: MAGNESIUM OXIDE 400 MG TABLET (FP) PO SCH (09:32)
[2017-09-27] MEDS: TIOTROPIUM BROMIDE 18 MCG/INH (DEVICE W/ 5 CAPSULES) IH SCH (09:33)
[2017-09-27] MEDS: BUDESONIDE/FORMETEROL FUMARATE 160/4.5 mcg INHALER IH SCH ×2 (09:34→22:01)
[2017-09-27] MEDS ORDERED: ACETYLCYSTEINE 20% 200MG/ML 4 ML VIAL *FOR ORAL / INH USE ONLY ONE (10:40)
[2017-09-27 14:45] LABS: ANISOCYTOSIS 0; MACROCYTOSIS 1+; PLATELET ESTIMATE NORMAL
--- NOTE | 2017-09-27 16:21 | PN ---
Physical Exam: SUBJECTIVE: Patient seen and examined. She says she feel much better, she slept , no further wheezing. OBJECTIVE: Vital Signs Period Temp Pulse Resp BP Sys/Smith Pulse Ox Last 24 Hr 97.5 F-98.4 F 76-89 18-20 142-162/67-87 97 PE Neuro: alert, awake, cn 2-12intact Pulm: course bs, rhonchi, no wheezing CV: s1 s2 rrr Abd: s nt nd + bs EXT: no le edema, warm Laboratory Results - last 24 hr 09/26/17 09/26/17 09/27/17 16:55 23:04 06:00 WBC 19.8 H RBC 3.68 Hgb 11.5 Hct 35.9 MCV 97.6 H MCH 31.4 MCHC 32.1 RDW 14.5 Plt Count 199 MPV 8.7 Neutrophils % No Result Required. Neutrophils % (Manual) 73.1 Band Neutrophils % 9.7 Lymphocytes % No Result Required. Lymphocytes % (Manual) 5.4 L D Monocytes % (Manual) 3 L D Eosinophils % (Manual) 0.0 D Basophils % (Manual) 0.0 Myelocytes % (Man) 2 D Promyelocytes % (Man) 1 D Metamyelocytes 0 D Hypochromia 0 Platelet Estimate Normal Polychromasia 1+ Poikilocytosis 0 Anisocytosis 0 Microcytosis 0 Macrocytosis 1+ Sodium Potassium Chloride Carbon Dioxide Anion Gap BUN Creatinine Creat Clearance w eGFR POC Glucometer 289 240 Random Glucose Calcium Magnesium Total Bilirubin AST ALT Alkaline Phosphatase Total Protein Albumin 09/27/17 09/27/17 09/27/17 06:00 06:24 12:24 WBC RBC Hgb Hct MCV MCH MCHC RDW Plt Count MPV Neutrophils % Neutrophils % (Manual) Band Neutrophils % Lymphocytes % Lymphocytes % (Manual) Monocytes % (Manual) Eosinophils % (Manual) Basophils % (Manual) Myelocytes % (Man) Promyelocytes % (Man) Metamyelocytes Hypochromia Platelet Estimate Polychromasia Poikilocytosis Anisocytosis Microcytosis Macrocytosis Sodium 140 Potassium 4.7 Chloride 101 Carbon Dioxide 29 Anion Gap 10 BUN 34 H Creatinine 1.0 Creat Clearance w eGFR 56.75 POC Glucometer 221 180 Random Glucose 214 H Calcium 9.1 Magnesium 2.2 Total Bilirubin 0.3 AST 9 L ALT 24 Alkaline Phosphatase 69 Total Protein 6.5 Albumin 3.1 L Active Medications Generic Name Dose Route Start Last Admin Trade Name Freq PRN Reason Stop Dose Admin Acetylcysteine 200 mg 09/24/17 21:15 09/27/17 15:35 Mucomyst 20 Oral / Inh Use Only* NEB 200 mg RQID JORDAN Administration Albuterol Sulfate 1 amp 09/24/17 12:00 09/27/17 15:35 Ventolin 0.083% Nebulizer Soln - NEB 1 amp RQID JORDAN Administration Budesonide/Formoterol Fumarate 2 puff 09/21/17 10:00 09/27/17 09:34 Symbicort 160/4.5mcg - IH Not Given BID [facility] Cyanocobalamin 3,000 mcg 09/21/17 10:00 09/27/17 09:31 Vitamin B12 - PO 3,000 mcg DAILY [facility] Administration Diphenhydramine HCl 50 mg 09/26/17 13:57 09/27/17 09:48 Benadryl Injection - IVPUSH 50 mg Q6H PRN Administration FOR ITCHING Docusate Sodium 100 mg 09/21/17 03:38 Colace - PO BID PRN CONSTIPATION Guaifenesin 10 ml 09/21/17 03:43 09/26/17 09:32 Robitussin - PO 10 ml Q4H PRN Administration COUGH Heparin Sodium (Porcine) 5,000 unit 09/21/17 06:00 09/27/17 06:26 Heparin - SQ 5,000 unit TID [facility] Administration Levofloxacin 250 mg in 50 mls @ 50 mls/hr 09/21/17 15:45 09/27/17 09:30 Levaquin 250 Mg Premixed Ivpb - IVPB 50 mls/hr DAILY [facility] Administration Insulin Aspart 1 vial 09/26/17 16:35 09/27/17 13:05 Novolog Vial Sliding Scale - SQ Not Given ACHS [facility] Protocol Insulin Detemir 25 units 09/26/17 07:00 09/27/17 06:26 Levemir Vial SQ 25 unit ACBK [facility] Administration Lamotrigine 400 mg 09/21/17 10:00 09/27/17 09:32 Lamictal - PO 400 mg DAILY [facility] Administration Levothyroxine Sodium 125 mcg 09/21/17 07:00 09/27/17 06:28 Synthroid - PO 125 mcg DAILY@0700 JORDAN Administration Losartan Potassium 25 mg 09/21/17 10:00 09/27/17 09:31 Cozaar - PO 25 mg DAILY JORDAN Administration Magnesium Oxide 400 mg 09/21/17 10:00 09/27/17 09:32 Mag-Ox - PO 400 mg DAILY JORDAN Administration Melatonin 10 mg 09/26/17 22:00 09/26/17 23:10 Melatonin PO 10 mg HS JORDAN Administration Metformin HCl 1,000 mg 09/22/17 18:00 09/27/17 06:25 Glucophage - PO 1,000 mg BIDAC JORDAN Administration Methylprednisolone Sodium Succinate 40 mg 09/27/17 18:00 Solu-Medrol - IVPB Q8H-IV JORDAN Pantoprazole Sodium 20 mg 09/21/17 10:00 09/27/17 09:31 Protonix - PO 20 mg DAILY JORDAN Administration Quetiapine Fumarate 400 mg 09/22/17 08:23 09/26/17 23:14 Seroquel - PO Not Given HS JORDAN Tiotropium [place] 1 puff 09/24/17 11:30 09/27/17 09:33 Spiriva - IH 1 puff DAILY JORDAN Administration Assessment: 57 year old female with a past medical history of COPD, asthma, pneumonia, diabetes, bipolar disorder and graves disease s/p thyroidectomy admitted with COPD exacerbation. Plan: 1. Acute COPD exacerbation - Taper medrol 40mg q8 - Levaquin day 7 - symbicort. spirivia jordan - Mucomyst jordan 2. DM II - Levemir, metformin 3. Bipolar disorder, chronic/stable - Stabl Lamital and Seroquel 4. HTN - Cozzar 25mg day 5. Hypothroid - Synthroid 125mcg daily 6. DVt - Heparin sq Dispo: - ? dc home tomorrow , long taper Visit type - Emergency Visit Emergency Visit: Yes ED Registration Date: 09/22/17 Care time: The patient presented to the Emergency Department on the above date and was hospitalized for further evaluation of their emergent condition. - New Patient This patient is new to me today: Yes Date on this admission: 09/27/17 - Critical Care Critical Care patient: No
--- NOTE | 2017-09-27 16:32 | PN ---
Progress Note, Physician History of Present Illness: pulmonary alert,feeling better,less dyspneic,+cough - Current Medication List Current Medications: Active Medications Acetylcysteine (Mucomyst 20 Oral / Inh Use Only*) 200 mg NEB RQID [facility] Last Admin: 09/27/17 15:35 Dose: 200 mg Albuterol Sulfate (Ventolin 0.083% Nebulizer Soln -) 1 amp NEB RQID [facility] Last Admin: 09/27/17 15:35 Dose: 1 amp Budesonide/Formoterol Fumarate (Symbicort 160/4.5mcg -) 2 puff IH BID [facility] Last Admin: 09/27/17 09:34 Dose: Not Given Cyanocobalamin (Vitamin B12 -) 3,000 mcg PO DAILY [facility] Last Admin: 09/27/17 09:31 Dose: 3,000 mcg Diphenhydramine HCl (Benadryl Injection -) 50 mg IVPUSH Q6H PRN PRN Reason: FOR ITCHING Last Admin: 09/27/17 09:48 Dose: 50 mg Docusate Sodium (Colace -) 100 mg PO BID PRN PRN Reason: CONSTIPATION Guaifenesin (Robitussin -) 10 ml PO Q4H PRN PRN Reason: COUGH Last Admin: 09/26/17 09:32 Dose: 10 ml Heparin Sodium (Porcine) (Heparin -) 5,000 unit SQ TID [facility] Last Admin: 09/27/17 06:26 Dose: 5,000 unit Levofloxacin (Levaquin 250 Mg Premixed Ivpb -) 250 mg in 50 mls @ 50 mls/hr IVPB DAILY [facility] Last Admin: 09/27/17 09:30 Dose: 50 mls/hr Insulin Aspart (Novolog Vial Sliding Scale -) 1 vial SQ ACHS [facility] PRN Reason: Protocol Last Admin: 09/27/17 13:05 Dose: Not Given Insulin Detemir (Levemir Vial) 25 units SQ ACBK [facility] Last Admin: 09/27/17 06:26 Dose: 25 unit Lamotrigine (Lamictal -) 400 mg PO DAILY [facility] Last Admin: 09/27/17 09:32 Dose: 400 mg Levothyroxine Sodium (Synthroid -) 125 mcg PO DAILY@0700 [facility] Last Admin: 09/27/17 06:28 Dose: 125 mcg Losartan Potassium (Cozaar -) 25 mg PO DAILY [facility] Last Admin: 09/27/17 09:31 Dose: 25 mg Magnesium Oxide (Mag-Ox -) 400 mg PO DAILY [facility] Last Admin: 09/27/17 09:32 Dose: 400 mg Melatonin (Melatonin) 10 mg PO HS [facility] Last Admin: 09/26/17 23:10 Dose: 10 mg Metformin HCl (Glucophage -) 1,000 mg PO BIDAC [facility] Last Admin: 09/27/17 06:25 Dose: 1,000 mg Methylprednisolone Sodium Succinate (Solu-Medrol -) 40 mg IVPUSH Q8H-IV MICHELL Pantoprazole Sodium (Protonix -) 20 mg PO DAILY [facility] Last Admin: 09/27/17 09:31 Dose: 20 mg Quetiapine Fumarate (Seroquel -) 400 mg PO HS [facility] Last Admin: 09/26/17 23:14 Dose: Not Given Tiotropium [place] (Spiriva -) 1 puff IH DAILY [facility] Last Admin: 09/27/17 09:33 Dose: 1 puff - Objective Vital Signs: Vital Signs Temperature 98.4 F 09/27/17 15:21 Pulse Rate 76 09/27/17 15:21 Respiratory Rate 18 09/27/17 15:21 Blood Pressure 153/77 09/27/17 15:21 O2 Sat by Pulse Oximetry (%) 97 09/26/17 21:00 Constitutional: Yes: Well Nourished, Calm Eyes: Yes: WNL HENT: Yes: WNL, Tonsillar Exudate Cardiovascular: Yes: Regular Rate and Rhythm, S1, S2 Respiratory: Yes: Wheezes (less wheezes bilaterally) Gastrointestinal: Yes: Normal Bowel Sounds, Soft Extremities: Yes: WNL Edema: Yes Labs: CBC, BMP 09/27/17 06:00 09/27/17 06:00 Problem List - Problems (1) Bronchitis Code(s): J40 - BRONCHITIS, NOT SPECIFIED ACUTE OR CHRONIC (2) COPD exacerbation Code(s): J44.1 - CHRONIC OBSTRUCTIVE PULMONARY DISEASE W (ACUTE) EXACERBATION (3) Hyperglycemia Code(s): R73.9 - HYPERGLYCEMIA, UNSPECIFIED Assessment/Plan A/P Acute Bronchitis Acute Bronchospasm improving Acute Kidney Injury improved HTN DM - continue standing mucomyst/albuterol - medrol at 40mg q8h - spiriva - continue antibiotics - chest PT - glucose control while on systemic steroids - humidify O2 - DVT prophylaxis - ANTI-TUSSIVES DR BEAUCHAMP
[2017-09-27] MEDS: methylPREDNISolone NA SUCC 40 MG/1 ML VIAL IVPUSH SCH (17:29)
[2017-09-27] MEDS: MELATONIN 5 MG TABLETS PO SCH (23:18)
[2017-09-27] MEDS: QUEtiapine FUMARATE 200 MG TABLET PO SCH (23:23)
[2017-09-28] MEDS: methylPREDNISolone NA SUCC 40 MG/1 ML VIAL IVPUSH SCH ×2 (01:09→09:19)
[2017-09-28] MEDS: HEPARIN NA (PORCINE) 5,000 UNITS/ML 1ML VIAL SQ SCH ×2 (06:33→13:32)
[2017-09-28] MEDS: metFORMIN HCL 500 MG TABLET (FP) PO SCH (06:35)
[2017-09-28] MEDS: LEVOTHYROXINE NA 125 MCG TABLET (FP) PO SCH (06:35)
[2017-09-28] MEDS: INSULIN SLIDING SCALE (NOVOLOG) 1 VIAL SQ SCH ×2 (06:36→11:50)
[2017-09-28] MEDS: INSULIN DETEMIR 100 UNITS/ML MDV SQ SCH (06:38)
[2017-09-28] MEDS ORDERED: INSULIN (NOVOLOG) ASPART 100 UNITS/ML 10ML VIAL ONE ×2 (06:51→11:47)
[2017-09-28] MEDS ORDERED: INSULIN DETEMIR 100 UNITS/ML MDV SQ ONE (06:51)
[2017-09-28] MEDS: ACETYLCYSTEINE 20% 200MG/ML 4 ML VIAL *FOR ORAL / INH USE ONLY NEB SCH ×2 (07:35→11:27)
[2017-09-28] MEDS: ALBUTEROL SO4 0.083% IH SOL 2.5 MG/3 ML VIAL.NEB. NEB SCH ×2 (07:35→11:27)
[2017-09-28] MEDS ORDERED: PT OWN MED DRAWER 7, Y5N ONE (09:44)
[2017-09-28] MEDS: CYANOCOBALAMIN 1,000 MCG TABLET (FP) PO SCH (09:46)
[2017-09-28] MEDS: BUDESONIDE/FORMETEROL FUMARATE 160/4.5 mcg INHALER IH SCH (09:46)
[2017-09-28] MEDS: PANTOPRAZOLE 20 MG TABLET (FP) PO SCH (09:46)
[2017-09-28] MEDS: MAGNESIUM OXIDE 400 MG TABLET (FP) PO SCH (09:46)
[2017-09-28] MEDS: LOSARTAN POTASSIUM 25 MG TABLET PO SCH (09:46)
[2017-09-28] MEDS: lamoTRIgine 100 MG TABLET (FP) PO SCH (09:47)
[2017-09-28] MEDS: LEVOFLOXACIN 250 MG IVPB 250 MG/50 ML MG IVPB SCH (10:47)
[2017-09-28] MEDS: TIOTROPIUM BROMIDE 18 MCG/INH (DEVICE W/ 5 CAPSULES) IH SCH (10:47)
--- NOTE | 2017-09-28 12:12 | PN ---
Progress Note (short form) - Note Progress Note: Subjective: The patient was seen and examined at the bedside, she states she is feeling better today. Awaiting recommendations from pulmonary for discharge planning Current Medications Generic Name Dose Route Start Last Admin Trade Name Freq PRN Reason Stop Dose Admin Acetylcysteine 200 mg 09/27/17 20:18 09/28/17 11:27 Mucomyst 20 Oral / Inh Use Only* NEB 200 mg RQID MICHELL Administration Albuterol Sulfate 1 amp 09/24/17 12:00 09/28/17 11:27 Ventolin 0.083% Nebulizer Soln - NEB 1 amp RQID MICHELL Administration Budesonide/Formoterol Fumarate 2 puff 09/21/17 10:00 09/28/17 09:46 Symbicort 160/4.5mcg - IH Not Given BID MICHELL Cyanocobalamin 3,000 mcg 09/21/17 10:00 09/28/17 09:46 Vitamin B12 - PO 3,000 mcg DAILY MICHELL Administration Diphenhydramine HCl 50 mg 09/26/17 13:57 09/28/17 09:19 Benadryl Injection - IVPUSH 50 mg Q6H PRN Administration FOR ITCHING Docusate Sodium 100 mg 09/21/17 03:38 Colace - PO BID PRN CONSTIPATION Guaifenesin 10 ml 09/21/17 03:43 09/26/17 09:32 Robitussin - PO 10 ml Q4H PRN Administration COUGH Heparin Sodium (Porcine) 5,000 unit 09/21/17 06:00 09/28/17 06:33 Heparin - SQ 5,000 unit TID MICHELL Administration Levofloxacin 250 mg in 50 mls @ 50 mls/hr 09/21/17 15:45 09/28/17 10:47 Levaquin 250 Mg Premixed Ivpb - IVPB 50 mls/hr DAILY MICHELL Administration Insulin Aspart 1 vial 09/26/17 16:35 09/28/17 11:50 Novolog Vial Sliding Scale - SQ 12 unit ACHS MICHELL Administration Protocol Insulin Detemir 25 units 09/26/17 07:00 09/28/17 06:38 Levemir Vial SQ 25 unit ACBK MICHELL Administration Lamotrigine 400 mg 09/21/17 10:00 09/28/17 09:47 Lamictal - PO 400 mg DAILY MICHELL Administration Levothyroxine Sodium 125 mcg 09/21/17 07:00 09/28/17 06:35 Synthroid - PO 125 mcg DAILY@0700 MICHELL Administration Losartan Potassium 25 mg 09/21/17 10:00 09/28/17 09:46 Cozaar - PO 25 mg DAILY MICHELL Administration Magnesium Oxide 400 mg 09/21/17 10:00 09/28/17 09:46 Mag-Ox - PO 400 mg DAILY MICHELL Administration Melatonin 10 mg 09/26/17 22:00 09/27/17 23:18 Melatonin PO 10 mg HS MICHELL Administration Metformin HCl 1,000 mg 09/22/17 18:00 09/28/17 06:35 Glucophage - PO 1,000 mg BIDAC MICHELL Administration Methylprednisolone Sodium Succinate 40 mg 09/27/17 18:00 09/28/17 09:19 Solu-Medrol - IVPUSH 40 mg Q8H-IV MICHELL Administration Pantoprazole Sodium 20 mg 09/21/17 10:00 09/28/17 09:46 Protonix - PO 20 mg DAILY MICHELL Administration Quetiapine Fumarate 400 mg 09/22/17 08:23 09/27/17 23:23 Seroquel - PO Not Given HS MICHELL Tiotropium [place] 1 puff 09/24/17 11:30 09/28/17 10:47 Spiriva - IH 1 puff DAILY MICHELL Administration Objective: Vital Signs Period Temp Pulse Resp BP Sys/Smith Pulse Ox Last 24 Hr 97.6 F-98.4 F 74-78 18-20 115-153/53-77 97 Physical Exam: General: NAD, A&Ox3 Lungs: Mild end inspiratory and end expiratory wheezing Heart: RRR, S1S2 Abd: Soft, non-tender, non-distended. Normoactive bowel sounds Neuro: CN 2-12 intact CBCD WBC 19.8 K/mm3 (4.0-10.0) H 09/27/17 06:00 RBC 3.68 M/mm3 (3.60-5.2) 09/27/17 06:00 Hgb 11.5 GM/dL (10.7-15.3) 09/27/17 06:00 Hct 35.9 % (32.4-45.2) 09/27/17 06:00 MCV 97.6 fl (80-96) H 09/27/17 06:00 MCHC 32.1 g/dl (32.0-36.0) 09/27/17 06:00 RDW 14.5 % (11.6-15.6) 09/27/17 06:00 Plt Count 199 K/MM3 (134-434) 09/27/17 06:00 MPV 8.7 fl (7.5-11.1) 09/27/17 06:00 CMP Sodium 140 mmol/L (136-145) 09/27/17 06:00 Potassium 4.7 mmol/L (3.5-5.1) 09/27/17 06:00 Chloride 101 mmol/L (98-107) 09/27/17 06:00 Carbon Dioxide 29 mmol/L (21-32) 09/27/17 06:00 Anion Gap 10 (8-16) 09/27/17 06:00 BUN 34 mg/dL (7-18) H 09/27/17 06:00 Creatinine 1.0 mg/dL (0.55-1.02) 09/27/17 06:00 Creat Clearance w eGFR 56.75 (>60) 09/27/17 06:00 Random Glucose 214 mg/dL (74-106) H 09/27/17 06:00 Calcium 9.1 mg/dL (8.5-10.1) 09/27/17 06:00 Total Bilirubin 0.3 mg/dL (0.2-1.0) 09/27/17 06:00 AST 9 U/L (15-37) L 09/27/17 06:00 ALT 24 U/L (12-78) 09/27/17 06:00 Alkaline Phosphatase 69 U/L (45-117) 09/27/17 06:00 Total Protein 6.5 g/dl (6.4-8.2) 09/27/17 06:00 Albumin 3.1 g/dl (3.4-5.0) L 09/27/17 06:00 CARDIAC ENZYMES Creatine Kinase 741 IU/L (26-192) H 09/20/17 20:00 Troponin I < 0.02 ng/ml (0.00-0.05) 09/20/17 20:00 Microbiology 09/21/17 16:10 Nasopharyngeal Swab Influenza Types A,B Antigen (SHIRLEY) - Final 09/21/17 16:10 Nasopharyngeal Swab - Final Assessment: This is a 57 year old female with PMHx of COPD, Asthma, multiple PNA , DM, Bipolar, Grave's s/p thyroidectomy who presented to the ED with cough since 08/27/17. Plan: 1) Acute COPD exacerbation - Continue Solu-medrol 40mg IVPB q8h, taper - Levaquin per pulmonary - Continue mucomyst - Continue Albuterol nebs - Continue symbicort - Continue Spiriva - Appreciate pulmonary consult 2) Leukocytosis - Likely 2/2 steroids, continue to trend - Afebrile, continue to monitor 3) YESICA - Resolved 4) DM - Continue Metformin 1000mg bid - BGM ACHS - ISS ACHS - Continue Levemir 5) Grave's disease s/p thyroidectomy - Continue Synthroid 6) Bipolar disorder - Continue Lamictal - Continue Seroquel 7) F/E/N: - Diabetic diet Monitor electrolytes 8) Prophylaxis: - OOB ambulating - Heparin 5,000u sq tid 9) Dispo: - Requires continued inpatient care - Awaiting pulmonary reevaluation for possible discharge today CODE STATUS: FULL CODE Visit type - Emergency Visit Emergency Visit: Yes ED Registration Date: 09/22/17 Care time: The patient presented to the Emergency Department on the above date and was hospitalized for further evaluation of their emergent condition. - New Patient This patient is new to me today: No - Critical Care Critical Care patient: No
[2017-09-28 13:05] LABS: HEMATOCRIT 37.9 % (32.4-45.2); HEMOGLOBIN 12.1 GM/dL (10.7-15.3); MCH 31.5 pg (25.7-33.7); MEAN CELL VOLUME 98.4 fl (80-96); MEAN PLT VOLUME 8.6 fl (7.5-11.1); PLATELET COUNT 210 K/MM3 (134-434); RBC 3.85 M/mm3 (3.60-5.2); RDW 15.2 % (11.6-15.6); WHITE BLOOD COUNT 18.6 K/mm3 (4.0-10.0)
--- NOTE | 2017-09-28 13:09 | PN ---
Progress Note (short form) - Note Progress Note: PULMONARY VSS/AFEBRILE WANTS TO GO HOME ANICTERIC MINIMAL SCATTERED EXP WHEEZE S1S2 BS+ OBESE NO EDEMA LABS/MEDS/NOTES/IMAGES REVIEWED A/P Acute Bronchitis Acute Bronchospasm improving Acute Kidney Injury improved HTN DM - continue bronchodilators - steroids changed to oral to taper as outpatient - agree with discharge planning Domingo HAYDEN MD
--- NOTE | 2017-09-28 14:17 | DS ---
Physical Examination Vital Signs: Vital Signs Temperature 98 F 09/28/17 09:14 Pulse Rate 78 09/28/17 09:14 Respiratory Rate 18 09/28/17 09:14 Blood Pressure 115/53 09/28/17 09:14 O2 Sat by Pulse Oximetry (%) 97 09/27/17 21:00 Labs: CBC, BMP 09/28/17 12:40 09/27/17 06:00 Discharge Summary Reason For Visit: ACUTE EXACERBATION/CHRONIC OBSTRUCTIVE PULMONARY D Current Active Problems Acute kidney injury (Acute) Bronchitis (Acute) COPD exacerbation (Acute) Hyperglycemia (Acute) Condition: Improved - Instructions Diet, Activity, Other Instructions: Please return to the ED with new, persistent, or worsening symptoms. Please follow-up with providers as indicated. Insulin sliding scale: Blood sugar: <150: 0 units 151-200: 2 units 201-250: 4 units 251-300: 6 units 301-350: 10 units 351-400: 12 units >401: call your primary care provider Referrals: Rogerio Quispe MD [Staff Physician] - (Please follow-up with pulmonary within 3- 5 days for further outpatient management of your bronchospasms and for outpatient pulmonary function testing. ) Abundio Stuart [Primary Care Provider] - 1 Week Disposition: HOME - Home Medications Comprehensive Discharge Medication List: Ambulatory Orders Levothyroxine [Synthroid -] 125 mcg PO DAILY #0 tablet 07/12/12 Atorvastatin Calcium [Lipitor] 10 mg PO HS 09/21/17 Valsartan 80 mg PO DAILY 09/21/17 Albuterol 0.083% Nebulizer Ellie [Ventolin 0.083% Nebulizer Soln -] 1 amp NEB RQID #120 amp 09/28/17 Alcohol Antiseptic Pads [Alcohol Prep Pads] 1 each TP ACHS #120 med..pad Budesonide/Formeterol Fumarate [SYMBICORT 160/4.5mcg -] 2 puff IH BID #1 inhaler 09/28/17 Cyanocobalamin [Vitamin B12 -] 3,000 mcg PO DAILY tablet 09/28/17 Docusate Sodium [Colace -] 100 mg PO BID PRN capsule 09/28/17 Guaifenesin [Robitussin -] 10 ml PO Q4H PRN #30 cup 09/28/17 Insulin (Levemir) [Levemir Vial] 25 units SQ ACBK ml 09/28/17 Insulin Sliding Scale [Novolog Vial Sliding Scale -] 1 vial SQ ACHS #1 ea Lamotrigine [Lamictal -] 400 mg PO DAILY #0 tab 09/28/17 Magnesium Oxide [Mag-Ox -] 400 mg PO DAILY tablet 09/28/17 Melatonin 10 mg PO HS #0 tab 09/28/17 Metformin HCl [Glucophage -] 1,000 mg PO BIDAC tablet 09/28/17 Pantoprazole Sodium [Protonix -] 20 mg PO DAILY #30 tablet.ec 09/28/17 Prednisone 10 mg PO ASDIR #30 tablet 09/28/17 Quetiapine Fumarate [Seroquel -] 400 mg PO HS #0 tab 09/28/17 Syringe,Needle,Insuln,Safe,1Ml [Easy Touch Fliplock Insulin] 1 each ACHS #90 disp.syrin 09/28/17 Tiotropium [place] [Spiriva] 1 puff IH DAILY #1 inh 09/28/17 - Discharge Referral Referred to [facility] No
[2017-09-28 14:25] VITALS: BP 132/71; PULSE 76; TEMP 98
[2017-09-29] MEDS ORDERED: predniSONE 20 MG TABLET (UD) PO SCH (10:00)
== END 2017-09-28 15:01 | disposition home or self-care (01) | DRG 460 ==
LOC: SUPCPDRO 19:33 → JER 19:33 → JERBED 09-21 02:09 → UNDOADMOB 09-21 02:21 → J7W 09-21 19:15 → OBSVTOIN 09-22 13:31
PROVIDERS: ADMIT Internal Medicine; ATTEND Registered Nurse
DX: N17.9 Acute kidney failure, unspecified (principal); J44.1 Chronic obstructive pulmonary disease with (acute) exacerbation; E11.9 Type 2 diabetes mellitus without complications; F31.9 Bipolar disorder, unspecified; J45.901 Unspecified asthma with (acute) exacerbation; I10 Essential (primary) hypertension; F12.20 Cannabis dependence, uncomplicated; D72.829 Elevated white blood cell count, unspecified
CPT/HCPCS: 36415; 71046-TC; 80053; 82550; 82553; 82962; 83735; 83880; 84100; 84484; 85025; 85027; 87804; 93005; 93010; 94640; 99283-25; G0378; J1644

== ENCOUNTER 2018-06-17 08:12 | Emergency (ER) | payer OTHER ==
[2018-06-17 08:18] VITALS: BMI 38.6
--- NOTE | 2018-06-17 09:34 | PDOC ---
History of Present Illness - General Chief Complaint: Shortness of Breath Stated Complaint: RESPIRATORY, CHEST PAIN Time Seen by Provider: 06/17/18 08:58 History Source: Patient - History of Present Illness Initial Comments: 06/17/18 10:29 58 year old female with a PMH of NIDDM, HTN, HLD presents to the ED c/o productive cough. Cough started yesterday and is often associated with greenish phelgm. Also notes a precedent 3-4 days of viral URI symptoms including runny nose and sore throat. Denies subjective fevers or shortness of breath. Tolerating PO intake, however limited appetite 2/2 to symptoms. No h/ o recent travel or sick contacts. Patient denies chest pain, abdominal pain, nausea/vomiting, diarrhea/ constipation, dysuria/hematuria. Alllergy: Oxycodone, ASA, Ibuprofen, Penicillins, Sulfa drugs Surgical: none reported Social: denies nicotine, social alcohol, oil marijuana pen daily. PMD: Ramon Thomas Past History - Past Medical History Allergies/Adverse Reactions: Allergies Allergy/AdvReac Type Severity Reaction Status Date / Time oxycodone HCl [From Percocet] Allergy Severe Difficulty Verified 06/17/18 08:15 Breathing aspirin Allergy Verified 06/17/18 08:15 ibuprofen Allergy Verified 06/17/18 08:15 Penicillins Allergy Verified 06/17/18 08:15 Sulfa (Sulfonamide Allergy Verified 06/17/18 08:15 Antibiotics) [Sulfa(Sulfonamide Antibiotics)] Home Medications: Ambulatory Orders Albuterol 0.083% Nebulizer Ellie [Ventolin 0.083% Nebulizer Soln -] 1 neb NEB Q4H PRN #1 vial 06/17/18 Atorvastatin Ca [Lipitor] 10 mg PO HS 06/17/18 Azithromycin [Zithromax Tri-[place] (3 DAYS) -] 500 mg PO DAILY #3 tablet 06/17/18 Lamotrigine [Lamictal] 200 mg PO DAILY 06/17/18 Levothyroxine Sodium [Synthroid] 125 mcg PO DAILY 06/17/18 Metformin HCl [Glucophage] 2,000 mg PO BID 06/17/18 Prednisone 40 mg PO DAILY #4 tablet 06/17/18 Quetiapine Fumarate [Seroquel] 300 mg PO HS 06/17/18 Valsartan 80 mg PO DAILY 06/17/18 Asthma: Yes COPD: No CHF: No DVT: No Diabetes: Yes (even off steroids) Thyroid Disease: Yes - Suicide/Smoking/Psychosocial Hx Smoking Status: Yes Smoking History: Former smoker Have you smoked in the past 12 months: Yes Number of Cigarettes Smoked Daily: 0 Information on smoking cessation initiated: No 'Breaking Loose' booklet given: 06/18/12 Hx Alcohol Use: No Drug/Substance Use Hx: No Substance Use Type: Marijuana Hx Substance Use Treatment: No Review of Systems - Review of Systems Constitutional: No: Chills, Fever HEENTM: No: Blurred Vision, Double Vision Respiratory: Yes: Productive cough. No: Shortness of Breath, Hemoptysis Cardiac (ROS): No: Chest Pain, Lightheadedness, Palpitations, Syncope ABD/GI: No: Constipated, Diarrhea, Nausea, Vomiting *Physical Exam - Vital Signs Last Vital Signs Temp Pulse Resp BP Pulse Ox 98.6 F 97 H 20 169/86 98 06/17/18 08:16 06/17/18 08:16 06/17/18 08:16 06/17/18 08:16 06/17/18 08:16 - Physical Exam General Appearance: Yes: Nourished, Appropriately Dressed Neck: positive: Supple Respiratory/Chest: positive: Wheezing. negative: Labored Respiration, Rapid RR , Crackles Cardiovascular: positive: S1, S2. negative: Edema, JVD Vascular Pulses: Dorsalis-Pedis (R): 2+, Doralis-Pedis (L): 2+ Gastrointestinal/Abdominal: positive: Normal Bowel Sounds, Soft Musculoskeletal: negative: CVA Tenderness (R), CVA Tenderness (L) Extremity: positive: Normal Capillary Refill, Normal Inspection Integumentary: positive: Normal Color, Dry, Warm Neurologic: positive: Fully Oriented, Alert ED Treatment Course - LABORATORY CBC & Chemistry Diagram: 06/17/18 10:08 06/17/18 10:08 Medical Decision Making - Medical Decision Making 06/17/18 11:22 58 year old female with productive cough. H/o viral URI symptoms. Intermittently tachycardic on exam. Frontal diagnosis: PNA, Bronchitis, viral URI less likely PE given no h/o recent immobilization, not on hypercoaguable medications. Will obtain basic labs, Rapid Strep and administer Duo Neb x1. No leukocytosis Rapid Strep negative CXR shows no infiltrate/consolidation/pleural effusion Tachycardia resolved Patient symptomatically improved, ambulatory around unit, tolerating PO intake. Will discharge home with return precautions and supportive care. I discussed the physical exam findings, ancillary test results and final diagnoses with the patient. I answered all of the patient's questions. The patient was satisfied with the care received and felt comfortable with the discharge plan and treatment plan. The patient will return to the Emergency Department with any new, persistent or worsening symptoms. *DC/Admit/Observation/Transfer Diagnosis at time of Disposition: Productive cough - Discharge Dispostion Disposition: HOME - Prescriptions Prescriptions: Albuterol 0.083% Nebulizer Ellie [Ventolin 0.083% Nebulizer Soln -] 1 neb NEB Q4H PRN #1 vial PRN Reason: Shortness Of Breath Azithromycin [Zithromax Tri-[place] (3 DAYS) -] 500 mg PO DAILY #3 tablet Prednisone 40 mg PO DAILY #4 tablet - Referrals Referrals: Ramon Thomas [Primary Care Provider] - - Patient Instructions - Post Discharge Activity
[2018-06-17 10:19] LABS: BASO % 0.3 % (0-2.0); EOS % 2.5 % (0-4.5); HEMOGLOBIN 13.1 GM/dL (10.7-15.3); LYMPH % 10.3 % (8-40); MCH 31.9 pg (25.7-33.7); MCHC 33.7 g/dl (32.0-36.0); MEAN CELL VOLUME 94.7 fl (80-96); MEAN PLT VOLUME 8.3 fl (7.5-11.1); MONO % 7.9 % (3.8-10.2); PLATELET COUNT 179 K/MM3 (134-434); RBC 4.12 M/mm3 (3.60-5.2); RDW 14.1 % (11.6-15.6); WHITE BLOOD COUNT 11.4 K/mm3 (4.0-10.0)
[2018-06-17] MEDS ORDERED: ALBUTEROL SO4 2.5/IPRATROPIUM 0.5 INH SOL 3 ML VIAL.NEB. NEB ONE ×2 (10:28→10:33)
[2018-06-17 10:41] LABS: ALBUMIN 3.8 g/dl (3.4-5.0); ALK PHOS 92 U/L (45-117); ANION GAP 7 MMOL/L (8-16); BILIRUBIN,TOTAL 0.2 mg/dL (0.2-1); BLOOD UREA NITROGEN 15 mg/dL (7-18); CALCIUM 9.1 mg/dL (8.5-10.1); CHLORIDE 108 mmol/L (98-107); CO2 24 mmol/L (21-32); CREATININE 0.7 mg/dL (0.55-1.3); GLUCOSE,RANDOM 154 mg/dL (74-106); POTASSIUM 4.3 mmol/L (3.5-5.1); SGOT/AST 9 U/L (15-37); SGPT/ALT 28 U/L (13-61); SODIUM 140 mmol/L (136-145); TOT PROT 7.2 g/dl (6.4-8.2)
[2018-06-17] MEDS ORDERED: AZITHROMYCIN 250 MG TABLET PO ONE (11:19)
[2018-06-17] MEDS ORDERED: AZITHROMYCIN 250 MG TABLET ONE (11:33)
[2018-06-17 11:39] VITALS: BP 153/74; PULSE 88; TEMP 98
--- NOTE | 2018-06-18 13:02 | EKG ---
Test Reason : Blood Pressure : / mmHG Vent. Rate : 093 BPM Atrial Rate : 093 BPM P-R Int : 204 ms QRS Dur : 094 ms QT Int : 416 ms P-R-T Axes : 055 060 040 degrees QTc Int : 517 ms NORMAL SINUS RHYTHM LOW VOLTAGE QRS SEPTAL INFARCT , AGE UNDETERMINED PROLONGED QT ABNORMAL ECG WHEN COMPARED WITH ECG OF 21-SEP-2017 09:11, SEPTAL INFARCT IS NOW PRESENT Confirmed by MD JOHNNA, ELIAS ([id number]) on 06/18/2018 1:02:26 PM Referred By: Confirmed By:ELIAS OROPEZA MD
== END 2018-06-17 12:03 | disposition home or self-care (01) ==
LOC: JER 08:12
PROC: 3E0F7GC Introduction of Other Therapeutic Substance into Respiratory Tract, Via Natural or Artificial Opening (ICD-10-PCS; principal; 2018-06-17)
DX: J06.9 Acute upper respiratory infection, unspecified (principal); R05 Cough; B97.89 Other viral agents as the cause of diseases classified elsewhere; I10 Essential (primary) hypertension; E11.9 Type 2 diabetes mellitus without complications; Z79.84 Long term (current) use of oral hypoglycemic drugs; E78.00 Pure hypercholesterolemia, unspecified
CPT/HCPCS: 36415; 71045-TC-FY; 80053; 85025; 87070; 87430; 87804; 93005; 93010; 94640; 99282-25